=== PATIENT | female | born 1985 | race Caucasian/White ===

== ENCOUNTER 2016-09-10 17:04 | Emergency (ER) | payer OTHER ==
[2016-09-10 17:20] VITALS: BP 135/75; PULSE 86; RESP 18; TEMP 97.4
--- NOTE | 2016-09-10 18:03 | ED ---
Fall HPI - General Chief Complaint: Fall Stated Complaint: Fall-IHS Time Seen by Provider: 09/10/16 17:48 Source: patient, RN notes reviewed, old records reviewed Mode of arrival: ambulatory - History of Present Illness Initial Comments: Patient is a 31-year-old female presenting to the stating that she fell on the ice yesterday at work and hurt her right knee. Patient reports that she was seen at urgent care clinic his stated they were unable to treat her because this is an IHS injury. She went to [facility] today and was given x-rays and was told that she has a knee sprain. Patient was given a prescription of her Motrin. Patient is also placed in a knee immobilizer. Patient has follow-up appointment with Dr. Corral an orthopedic physician. At this time patient was told it [facility] that she was they were unable to fill out IHS paperwork due to the fact that they did not work with workman's comp. Patient was then sent to our facility where she was instructed urine tests. She declines to have any other imaging studies at this time. She is placed in a knee immobilizer. Patient denies any new symptoms or new injuries at from last night. - Related Data Home Medications Medication Instructions Recorded Confirmed Acyclovir 1 tab PO DAILY 04/22/14 07/08/14 Allergies Allergy/AdvReac Type Severity Reaction Status Date / Time No Known Allergies Allergy Verified 07/08/14 20:09 Review of Systems ROS Statement: Those systems with pertinent positive or pertinent negative responses have been documented in the HPI. ROS Other: All systems not noted in ROS Statement are negative. Past Medical History Past Medical History: Asthma History of Any Multi-Drug Resistant Organisms: None Reported Past Surgical History: Section, Tonsillectomy Past Anesthesia/Blood Transfusion Reactions: No Reported Reaction Past Psychological History: ADD/ADHD, Anxiety, Depression, PTSD Smoking Status: Current every day smoker Past Alcohol Use History: None Reported Past Drug Use History: None Reported Additional Drug Use History / Comment(s): Last used crack at 12/24/2013 @ 0300 - Past Family History Father Family Medical History: Cancer Mother Additional Family Medical History / Comment(s): HX of Bipolar General Exam - General Exam Comments Initial Comments: is a 31-year-old female. She does not appear to be in any acute. Limitations: no limitations General appearance: alert, in no apparent distress Head exam: Present: atraumatic, normocephalic, normal inspection Eye exam: Present: normal appearance, PERRL, EOMI. Absent: scleral icterus, conjunctival injection, periorbital swelling ENT exam: Present: normal exam, mucous membranes moist Neck exam: Present: normal inspection. Absent: tenderness, meningismus, lymphadenopathy Respiratory exam: Present: normal lung sounds bilaterally. Absent: respiratory distress, wheezes, rales, rhonchi, stridor Cardiovascular Exam: Present: regular rate, normal rhythm, normal heart sounds. Absent: systolic murmur, diastolic murmur, rubs, gallop, clicks GI/Abdominal exam: Present: soft, normal bowel sounds. Absent: distended, tenderness, guarding, rebound, rigid Extremities exam: Present: normal inspection, full ROM, normal capillary refill. Absent: tenderness, pedal edema, joint swelling, calf tenderness Right Knee exam: Present: normal inspection. Absent: full ROM (Patient has been placed in a knee immobilizer.) Lower Leg exam: Present: normal inspection, full ROM Ankle exam: Present: normal inspection, full ROM Foot/Toe exam: Present: normal inspection, full ROM Neurovascular tendon exam: Present: no vascular compromise Back exam: Present: normal inspection, full ROM Neurological exam: Present: alert, oriented X3, CN II-XII intact Psychiatric exam: Present: normal affect, normal mood Skin exam: Present: warm, dry, intact, normal color. Absent: rash Course Vital Signs 09/10/16 17:16 Temperature 97.4 F L Pulse Rate 86 Respiratory 18 Rate Blood Pressure 135/75 O2 Sat by Pulse 97 Oximetry Medical Decision Making - Medical Decision Making Patient is a 31-year-old female with chief complaint of knee pain after a fall yesterday. She was seen at [facility] earlier today however she has relatively I just paperwork. They did treat her placed in a knee immobilizer as well as to x -rays. Patient has a follow-up appointment with orthopedic physician. Patient was adhered to complete her urine test for Workmen's Comp. Urine sample is obtained. Patient will be discharged at this time she declines any further imaging studies. Patient denies any new injuries or complaints. Patient understands treatment plan and will comply. Return parameters were discussed. Disposition Clinical Impression: Right knee sprain Disposition: HOME SELF-CARE Condition: Good Instructions: Knee Sprain (ED) Additional Instructions: Patient instructed to follow-up with orthopedic Dr. Corral. Take anti- inflammatories and elevate leg as instructed. Return to the [facility] if any alarming signs or symptoms occur. Referrals: None,Stated [Primary Care Provider] - 1-2 days Time of Disposition: 18:03
== END 2016-09-10 18:11 | disposition home or self-care (01) ==
LOC: EC 17:04
DX: S83.91XA Sprain of unspecified site of right knee, initial encounter (principal); F17.200 Nicotine dependence, unspecified, uncomplicated; W00.0XXA Fall on same level due to ice and snow, initial encounter; Y99.0 Civilian activity done for income or pay
CPT/HCPCS: 99283

== ENCOUNTER 2016-10-14 12:40 | Emergency (ER) | payer OTHER ==
[2016-10-14] MEDS ORDERED: CEPHALEXIN 500 MG CAP PO STA (13:34)
--- NOTE | 2016-10-14 13:37 | ED ---
Recheck HPI - General Chief Complaint: Recheck/Abnormal Lab/Rx Stated Complaint: poss incision infection-post op gallbladder Time Seen by Provider: 10/14/16 12:56 Source: patient Mode of arrival: ambulatory Limitations: no limitations - History of Present Illness Initial Comments: This patient is a 31-year-old woman who presents to have a wound recheck. The patient states that nearly 2 weeks ago, she had laparoscopic cholecystectomy performed here by Dr. Golden. She states that over the past couple of days she noticed that one of the incisions has opened a little bit, and she states that there is some pus draining. She describes the fluid as being somewhat yellow on the dressing. The patient denies fever or chills, diaphoresis, dyspnea, palpitations. She is not having any abdominal pain. MD Complaint: wound re-check Onset/Timin -: week(s) Returns Today for: wound recheck Symptoms Since Prior Visit: worsening redness, worsening discharge Associated Symptoms: none - Related Data Home Medications Medication Instructions Recorded Confirmed Ibuprofen [Motrin] 800 mg PO Q8HR PRN 10/14/16 10/14/16 Previous Rx's Medication Instructions Recorded Cephalexin [Keflex] 500 mg PO Q6HR #28 cap 10/14/16 traMADol HCl [Ultram] 50 mg PO Q6H PRN #15 tab 10/14/16 Allergies Allergy/AdvReac Type Severity Reaction Status Date / Time No Known Allergies Allergy Verified 10/14/16 13:37 Review of Systems ROS Statement: Those systems with pertinent positive or pertinent negative responses have been documented in the HPI. ROS Other: All systems not noted in ROS Statement are negative. Constitutional: Denies: fever, chills Respiratory: Denies: cough, dyspnea Cardiovascular: Denies: chest pain, palpitations, syncope Gastrointestinal: Denies: abdominal pain, vomiting, diarrhea Musculoskeletal: Denies: back pain Skin: Reports: as per HPI Past Medical History Past Medical History: Asthma Additional Past Medical History / Comment(s): Gallstones History of Any Multi-Drug Resistant Organisms: None Reported Past Surgical History: Section, Cholecystectomy, Tonsillectomy Additional Past Surgical History / Comment(s): x2 Past Anesthesia/Blood Transfusion Reactions: No Reported Reaction Past Psychological History: ADD/ADHD, Anxiety, Depression, PTSD Additional Psychological History / Comment(s): [facility] She is independent Smoking Status: Current every day smoker Past Alcohol Use History: None Reported Additional Past Alcohol Use History / Comment(s): Pt started smoking in 1996 and is a ppd smoker. Past Drug Use History: None Reported Additional Drug Use History / Comment(s): Pt denied any past or present drug use. - Past Family History Father Family Medical History: Cancer Additional Family Medical History / Comment(s): Bladder cancer. Mother Additional Family Medical History / Comment(s): HX of Bipolar General Exam Limitations: no limitations General appearance: alert, in no apparent distress Head exam: Present: atraumatic, normocephalic Eye exam: Present: normal appearance. Absent: scleral icterus, conjunctival injection ENT exam: Present: normal oropharynx Neck exam: Present: normal inspection, full ROM Respiratory exam: Present: normal lung sounds bilaterally. Absent: respiratory distress, wheezes, rales, rhonchi, stridor Cardiovascular Exam: Present: regular rate, normal rhythm GI/Abdominal exam: Present: soft, other (Patient's 1 Lepper scopic incision has a small amount of dehiscence. There is a little bit of serous drainage. There does not appear to be any purulent drainage. There is a trace of erythema adjacent. No tenderness. No palpable fluid collections.). Absent: distended, tenderness, guarding, rebound, rigid, hernia Extremities exam: Present: normal inspection, normal capillary refill. Absent: pedal edema, calf tenderness Back exam: Absent: CVA tenderness (R), CVA tenderness (L) Skin exam: Present: warm, dry, erythema. Absent: intact, rash Course Vital Signs 10/14/16 10/14/16 12:50 13:55 Temperature 98.8 F 99.3 F Pulse Rate 84 74 Respiratory 18 16 Rate Blood Pressure 123/75 119/57 O2 Sat by Pulse 98 98 Oximetry Medical Decision Making - Medical Decision Making This patient is a 31-year-old woman nearly 2 weeks status post lap jonathon. There is trace of erythema adjacent to one of the incisions. After discussion with surgeon, patient started on antibiotic and will follow clinic. Discussed return parameters and appropriate follow-up. Disposition Clinical Impression: Encounter for wound re-check Disposition: HOME SELF-CARE Condition: Good Instructions: *Surgery [facility] - ([facility]) Laparoscopic Cholecystectomy Prescriptions: Cephalexin [Keflex] 500 mg PO Q6HR #28 cap traMADol HCl [Ultram] 50 mg PO Q6H PRN #15 tab PRN Reason: Pain Referrals: Ahsan Golden MD [STAFF PHYSICIAN] - 1-2 days
[2016-10-14] MEDS ORDERED: IBUPROFEN 400 MG TAB PO STA (13:44)
[2016-10-14 13:57] VITALS: BP 119/57; PULSE 74; RESP 16; TEMP 99.3
== END 2016-10-14 13:55 | disposition home or self-care (01) ==
LOC: EC 12:40
DX: Z09 Encounter for follow-up examination after completed treatment for conditions other than malignant neoplasm (principal); F17.200 Nicotine dependence, unspecified, uncomplicated
CPT/HCPCS: 87070; 87077; 87186; 87205; 99283

== ENCOUNTER 2017-01-13 11:44 | Emergency (ER) | payer OTHER ==
--- NOTE | 2017-01-13 12:46 | ED ---
General Adult HPI - General Chief complaint: Psychiatric Symptoms Stated complaint: PRIVATE ISSUE Time Seen by Provider: 01/13/17 12:24 Source: patient, RN notes reviewed Mode of arrival: ambulatory Limitations: no limitations - History of Present Illness Initial comments: Patient 31-year-old female who presents emergency room today with a chief complaint of increased depression. She states she's not had specific thoughts of hurting herself. She denies any homicidal thoughts or plans. She does admit that she's had increased pressure is currently off her medications. She states that she recently lost her job and prior to that lost custody of her son. Patient denies any physical complaints. Patient denies any recent fever, chills, shortness of breath, chest pain, back pain, abdominal pain, nausea or vomiting, numbness or tingling, dysuria or hematuria, constipation or diarrhea, headaches or visual changes, or any other complaints. - Related Data Home Medications Medication Instructions Recorded Confirmed Albuterol Inhaler [Ventolin Hfa 1 - 2 puff INHALATION Q6HR PRN 01/13/17 01/13/17 Inhaler] Allergies Allergy/AdvReac Type Severity Reaction Status Date / Time No Known Allergies Allergy Verified 01/13/17 12:25 Review of Systems ROS Statement: Those systems with pertinent positive or pertinent negative responses have been documented in the HPI. ROS Other: All systems not noted in ROS Statement are negative. Past Medical History Past Medical History: Asthma Additional Past Medical History / Comment(s): Gallstones History of Any Multi-Drug Resistant Organisms: None Reported Date of last positivie culture/infection: 10/14/16 MDRO Source:: Abdomen Past Surgical History: Section, Cholecystectomy, Tonsillectomy Additional Past Surgical History / Comment(s): x2 Past Anesthesia/Blood Transfusion Reactions: No Reported Reaction Past Psychological History: ADD/ADHD, Anxiety, Depression, PTSD Additional Psychological History / Comment(s): Pt resides with a roomate. She is independent Smoking Status: Current every day smoker Past Alcohol Use History: None Reported Additional Past Alcohol Use History / Comment(s): Pt started smoking in 1996 and is a ppd smoker. Past Drug Use History: None Reported Additional Drug Use History / Comment(s): Pt denied any past or present drug use. - Past Family History Father Family Medical History: Cancer Additional Family Medical History / Comment(s): Bladder cancer. Mother Additional Family Medical History / Comment(s): HX of Bipolar General Exam - General Exam Comments Initial Comments: General: The patient is awake and alert, in no distress, and does not appear acutely ill. Eye: Pupils are equal, round and reactive to light, extra-ocular movements are intact. No nystagmus. There is normal conjunctiva bilaterally. No signs of icterus. Ears, nose, mouth and throat: There are moist mucous membranes and no oral lesions. Neck: The neck is supple, there is no tenderness or JVD. Cardiovascular: There is a regular rate and rhythm. No murmur, rub or gallop is appreciated. Respiratory: Lungs are clear to auscultation, respirations are non-labored, breath sounds are equal. No wheezes, stridor, rales, or rhonchi. Musculoskeletal: Normal ROM, no tenderness. Strength 5/5. Sensation intact. Pulses equal bilaterally 2+. Neurological: A&O x 3. CN II-XII intact, There are no obvious motor or sensory deficits. Coordination appears grossly intact. Speech is normal. Skin: Skin is warm and dry and no rashes or lesions are noted. Psychiatric: Cooperative, appropriate mood & affect, normal judgment. Limitations: no limitations Course Vital Signs 01/13/17 01/13/17 11:53 14:35 Temperature 97.6 F 98.2 F Pulse Rate 101 H 69 Respiratory 18 16 Rate Blood Pressure 121/87 110/62 O2 Sat by Pulse 99 Oximetry Medical Decision Making - Medical Decision Making Patient has been seen here in the emergency room by mental health. At this time they are helping patient arrange follow-up. She states she feels comfortable being discharged home. She is willing to sign a contract for safety. States she will return if any symptoms increase or worsen or for any other concerns. Patient will be discharged home advised to follow-up with mental health as discussed here Disposition Clinical Impression: Depression Disposition: HOME SELF-CARE Condition: Good Instructions: Depression (ED) Additional Instructions: Please follow-up with mental health as discussed here the emergency room. Please try to emergency room if any symptoms increase or worsen or for any other concerns. Referrals: None,Stated [Primary Care Provider] - 1-2 days Time of Disposition: 15:24
--- NOTE | 2017-01-13 15:49 | ED ---
Medical Decision Making - Medical Decision Making Psych services seen patient in the emergency room. She is willing to sign a safety contract. They were trying to set up an appointment for patient. Unable to make appointment for 9 days. At this time psych nurse did discuss with the psychiatrist Dr. Almonte who recommends starting Prozac 20 mg daily for the first 9 days until she is able follow-up. Disposition Clinical Impression: Depression Disposition: HOME SELF-CARE Condition: Good Instructions: Depression (ED) Additional Instructions: Please follow-up with mental health as discussed here the emergency room. Please try to emergency room if any symptoms increase or worsen or for any other concerns. Prescriptions: FLUoxetine HCL [PROzac] 20 mg PO DAILY #9 cap Referrals: None,Stated [Primary Care Provider] - 1-2 days
[2017-01-13 15:53] VITALS: BP 116/58; PULSE 78; RESP 15; TEMP 98.8
== END 2017-01-13 15:54 | disposition home or self-care (01) ==
LOC: EC 11:44
DX: F32.9 Major depressive disorder, single episode, unspecified (principal); F17.200 Nicotine dependence, unspecified, uncomplicated
CPT/HCPCS: 82075; 99284

== ENCOUNTER 2017-02-17 17:57 | Emergency (ER) | payer OTHER ==
[2017-02-17] MEDS ORDERED: MORPHINE SULFATE 10 MG/ML SYRINGE IM STA (19:02)
--- NOTE | 2017-02-17 19:06 | ED ---
Abdominal Pain HPI - General Chief Complaint: Abdominal Pain Stated Complaint: pelvic pain Time Seen by Provider: 02/17/17 18:42 Source: patient, RN notes reviewed Mode of arrival: ambulatory Limitations: no limitations - History of Present Illness Initial Comments: Patient is a 30-year-old female presents to the emergency room for evaluation of pelvic pain. Patient states she had an annual Pap smear done by her primary care provider last week. Patient states after the bimanual exam she having increasing pain in her right lower quadrant and left lower quadrant. Patient states that she does have an IUD in place. Patient states she's had it for about 2 years. Patient states she's afraid that her IUD is not in the right place. Patient denies pain or burning during urination, trouble urinating or blood in urine. Patient denies any abnormal vaginal discharge. Patient has history of STDs. Patient denies constipation or diarrhea. Patient denies fevers or chills. - Related Data Home Medications Medication Instructions Recorded Confirmed Albuterol Inhaler [Ventolin Hfa 1 - 2 puff INHALATION RT-Q6H PRN 01/13/17 Inhaler] Loratadine [Claritin] 10 mg PO DAILY 02/17/17 02/17/17 valACYclovir [Valtrex] 500 mg PO DAILY 02/17/17 02/17/17 Previous Rx's Medication Instructions Recorded FLUoxetine HCL [PROzac] 20 mg PO DAILY #9 cap 01/13/17 HYDROcodone/APAP 5-325MG [[place]field 1 tab PO Q6HR PRN #12 tab 02/17/17 5-325] Ibuprofen [Motrin] 600 mg PO Q6HR PRN #20 tab 02/17/17 Allergies Allergy/AdvReac Type Severity Reaction Status Date / Time No Known Allergies Allergy Verified 02/17/17 18:04 Review of Systems ROS Statement: Those systems with pertinent positive or pertinent negative responses have been documented in the HPI. ROS Other: All systems not noted in ROS Statement are negative. Past Medical History Past Medical History: Asthma Additional Past Medical History / Comment(s): Gallstones History of Any Multi-Drug Resistant Organisms: None Reported Date of last positivie culture/infection: 10/14/16 MDRO Source:: Abdomen Past Surgical History: Section, Cholecystectomy, Tonsillectomy Additional Past Surgical History / Comment(s): x2 Past Anesthesia/Blood Transfusion Reactions: No Reported Reaction Past Psychological History: ADD/ADHD, Anxiety, Depression, Panic Disorder, PTSD Smoking Status: Current every day smoker Past Alcohol Use History: None Reported Past Drug Use History: None Reported - Past Family History Father Family Medical History: Cancer Additional Family Medical History / Comment(s): Bladder cancer. Mother Additional Family Medical History / Comment(s): HX of Bipolar General Exam - General Exam Comments Initial Comments: laying in exam room, no acute distress. Limitations: no limitations General appearance: alert, in no apparent distress Head exam: Present: atraumatic, normocephalic, normal inspection Eye exam: Present: normal appearance ENT exam: Present: normal exam Neck exam: Present: normal inspection Respiratory exam: Present: normal lung sounds bilaterally. Absent: respiratory distress Cardiovascular Exam: Present: regular rate, normal rhythm, normal heart sounds GI/Abdominal exam: Present: soft, normal bowel sounds. Absent: distended, tenderness, guarding, rebound, rigid External exam: Present: normal external exam Speculum exam: Present: vaginal discharge By manual exam: Present: adnexal tenderness (right and left) Extremities exam: Present: normal inspection Back exam: Present: normal inspection Neurological exam: Present: alert, oriented X3, CN II-XII intact, normal gait Psychiatric exam: Present: normal affect, normal mood Skin exam: Present: warm, dry, intact, normal color. Absent: rash Course Vital Signs 02/17/17 18:01 Temperature 97.8 F Pulse Rate 74 Respiratory 18 Rate Blood Pressure 128/80 O2 Sat by Pulse 98 Oximetry Medical Decision Making - Medical Decision Making Patient is a 31-year-old female presents to the emergency room for evaluation of lower pelvic pain. pelvic exam shows no significant findings. Urinalysis shows no significant findings. Ultrasound showed no acute or abnormal findings. IUD is in good place. Results discussed with patient. Advised patient to follow-up with her primary care provider or [facility] symptoms not subsiding in 7-10 days. Advised patient to continue refraining from sexual intercourse. Patient states she understands everything that was discussed with her. Return parameters discussed. Case discussed Dr. Jovel. - Lab Data Lab Results 02/17/17 02/17/17 Range/Units 19:00 19:00 Urine Color Light Yellow Urine Appearance Cloudy H (Clear) Urine pH 7.0 (5.0-8.0) Ur Specific [place] 1.008 (1.001-1.035) Urine Protein Negative (Negative) Urine Glucose (UA) Negative (Negative) Urine Ketones Negative (Negative) Urine Blood Negative (Negative) Urine Nitrite Negative (Negative) Urine Bilirubin Negative (Negative) Urine Urobilinogen <2.0 (<2.0) mg/dL Ur Leukocyte Esterase Negative (Negative) Ur Squamous Epith Cells 6 H (0-4) /hpf Amorphous Sediment Moderate H (None) /hpf Urine Mucus Rare H (None) /hpf Trichomonas Ag (Rapid) Negative (Negative) - Radiology Data Radiology results: report reviewed, image reviewed Disposition Clinical Impression: Pelvic pain Disposition: HOME SELF-CARE Condition: Good Instructions: Pelvic Pain in Women (ED) Additional Instructions: Take pain medications as needed. Refrain from sexual intercourse for the next 7 -10 days. Please follow up with primary care provider or [facility] in 1-2 days. If any new symptom arises or symptoms worsen, return to ER as soon as possible. Prescriptions: HYDROcodone/APAP 5-325MG [Brownfield 5-325] 1 tab PO Q6HR PRN #12 tab PRN Reason: Nausea Ibuprofen [Motrin] 600 mg PO Q6HR PRN #20 tab PRN Reason: Pain Referrals: Veronica Montenegro MD [Primary Care Provider] - 1-2 days Shamika Dowell DO [Doctor of Osteopathic Medicine] - 1-2 days Time of Disposition: 19:55
[2017-02-17 19:18] LABS: Amorphous Sediment,Urine Moderate /hpf; Appearance,Urine Cloudy (Clear); Bilirubin,Urine Negative (Negative); Glucose,Urine (UA) Negative (Negative); Ketones,Urine Negative (Negative); Leukocyte Esterase,Urine Negative (Negative); Mucus,Urine Rare /hpf; Nitrite,Urine Negative (Negative); Particle Count 13209; Protein,Urine Negative (Negative); Specific Gravity,Urine 1.008 (1.001-1.035); Squamous Epithelial Cell,Urine 6 /hpf (0-4); UA Billing (MACRO vs. MICRO) MICRO; Urobilinogen,Urine <2.0 mg/dL (<2.0)
--- NOTE | 2017-02-17 19:51 | US ---
EXAMINATION TYPE: US transvaginal DATE OF EXAM: 02/17/2017 COMPARISON: NONE CLINICAL HISTORY: Pain, more on the left . TECHNIQUE: Transvaginal (TV) Date of LMP: About 2 years ago, patient has IUD EXAM MEASUREMENTS: Uterus: 7.3 x 3.9 x 5.1 cm Endometrial Stripe: 0.5 cm Right Ovary: 3.2 x 2.3 x 2.3 cm Left Ovary: 3.1 x 2.1 x 2.1 cm 1. Uterus: Anteverted wnl 2. Endometrium: wnl, IUD visualized in mid 3. Right Ovary: wnl 4. Left Ovary: wnl Spectral, color and waveform doppler imaging shows good arterial and venous flow within the ovaries ; there is no evidence for ovarian torsion. 5. Bilateral Adnexa: wnl 6. Posterior cul-de-sac: wnl IMPRESSION: IUD appears in good position. No adnexal mass or free fluid. No endometrial thickening se en. There is normal arterial waveform in the ovarian arteries on the color Doppler images. No sign of torsion.
[2017-02-17 20:09] VITALS: BP 102/58; PULSE 63; RESP 16; TEMP 98.7
== END 2017-02-17 20:09 | disposition home or self-care (01) ==
LOC: EC 17:57
DX: R10.2 Pelvic and perineal pain (principal); F17.200 Nicotine dependence, unspecified, uncomplicated; Z90.49 Acquired absence of other specified parts of digestive tract; Z79.899 Other long term (current) drug therapy
CPT/HCPCS: 99284; 96372; 87591; 87491; 81001; 81025; 87808; 87086; 87077; 87186; 93975; 76830; J2270

== ENCOUNTER 2017-02-24 14:06 | Inpatient (IN) | payer MEDICAID, OTHER ==
--- NOTE | 2017-02-24 14:45 | ED ---
Psych HPI - General Chief Complaint: Psychiatric Symptoms Stated Complaint: Mental Health Time Seen by Provider: 02/24/17 14:22 Source: patient, RN notes reviewed Mode of arrival: ambulatory Limitations: no limitations - History of Present Illness Initial Comments: 31-year-old female presents emergency Department with chief complaint of psychiatric evaluation. Patient states that she is very depressed, suicidal. She states that she checked drink herself to sleep to the point where she would not wake up last night. Patient states that she is on Prozac 20 mg states it is not helping. Patient states she has been seen here in the past and also by primary care physician. She does have a counselor. Patient denies any physical complaints denies any drug abuse. - Related Data Home Medications Medication Instructions Recorded Confirmed Loratadine [Claritin] 10 mg PO DAILY 02/17/17 02/24/17 valACYclovir [Valtrex] 500 mg PO DAILY 02/17/17 02/24/17 Sulfamethox-Tmp 800-160Mg [Bactrim 1 tab PO Q12HR 02/24/17 02/24/17 DS 800-160 mg] Previous Rx's Medication Instructions Recorded FLUoxetine HCL [PROzac] 20 mg PO DAILY #9 cap 01/13/17 Allergies Allergy/AdvReac Type Severity Reaction Status Date / Time No Known Allergies Allergy Verified 02/24/17 14:27 Review of Systems ROS Statement: Those systems with pertinent positive or pertinent negative responses have been documented in the HPI. ROS Other: All systems not noted in ROS Statement are negative. Past Medical History Past Medical History: Asthma Additional Past Medical History / Comment(s): Gallstones History of Any Multi-Drug Resistant Organisms: None Reported Date of last positivie culture/infection: 10/14/16 MDRO Source:: Abdomen Past Surgical History: Section, Cholecystectomy, Tonsillectomy Additional Past Surgical History / Comment(s): x2 Past Anesthesia/Blood Transfusion Reactions: No Reported Reaction Past Psychological History: ADD/ADHD, Anxiety, Depression, Panic Disorder, PTSD Smoking Status: Current every day smoker Past Alcohol Use History: None Reported Past Drug Use History: None Reported - Past Family History Father Family Medical History: Cancer Additional Family Medical History / Comment(s): Bladder cancer. Mother Additional Family Medical History / Comment(s): HX of Bipolar General Exam Limitations: no limitations General appearance: alert, in no apparent distress Head exam: Present: atraumatic, normocephalic, normal inspection Eye exam: Present: normal appearance, PERRL, EOMI. Absent: scleral icterus, conjunctival injection, periorbital swelling ENT exam: Present: normal exam, mucous membranes moist Neck exam: Present: normal inspection, full ROM. Absent: tenderness, meningismus, lymphadenopathy Respiratory exam: Present: normal lung sounds bilaterally. Absent: respiratory distress, wheezes, rales, rhonchi, stridor Cardiovascular Exam: Present: regular rate, normal rhythm, normal heart sounds. Absent: systolic murmur, diastolic murmur, rubs, gallop, clicks GI/Abdominal exam: Present: soft, normal bowel sounds. Absent: distended, tenderness, guarding, rebound, rigid Neurological exam: Present: alert, oriented X3, CN II-XII intact Skin exam: Present: warm, dry, intact, normal color. Absent: rash Course Vital Signs 02/24/17 02/24/17 14:16 17:19 Temperature 98.4 F 99.5 F Pulse Rate 71 89 Respiratory 20 18 Rate Blood Pressure 123/80 112/67 O2 Sat by Pulse 96 99 Oximetry Medical Decision Making - Lab Data Lab Results 02/24/17 Range/Units 14:32 Urine Opiates Screen Not Detected (NotDetected) Ur Oxycodone Screen Not Detected (NotDetected) Urine Methadone Screen Not Detected (NotDetected) Ur Propoxyphene Screen Not Detected (NotDetected) Ur Barbiturates Screen Not Detected (NotDetected) U Tricyclic Antidepress Not Detected (NotDetected) Ur Phencyclidine Scrn Not Detected (NotDetected) Ur Amphetamines Screen Not Detected (NotDetected) U Methamphetamines Scrn Not Detected (NotDetected) U Benzodiazepines Scrn Not Detected (NotDetected) Urine Cocaine Screen Detected H (NotDetected) U Marijuana (THC) Screen Not Detected (NotDetected) Disposition Clinical Impression: Suicidal ideation, Depression Disposition: ADMITTED IP TO THIS [facility] Condition: Stable
[2017-02-24] MEDS ORDERED: MAG HYDROX/AL HYDROX/SIMETH 30 ML CUP PO PRN (19:21)
[2017-02-24] MEDS ORDERED: ACETAMINOPHEN TAB 325 MG TAB PO PRN (19:21)
[2017-02-24] MEDS ORDERED: MAGNESIUM HYDROXIDE 2,400 MG/10 ML CUP PO PRN (19:21)
[2017-02-24 19:34] LABS: Appearance,Urine Clear (Clear); Bilirubin,Urine Negative (Negative); Glucose,Urine (UA) Negative (Negative); Ketones,Urine Negative (Negative); Leukocyte Esterase,Urine Negative (Negative); Nitrite,Urine Negative (Negative); Protein,Urine Trace (Negative); Specific Gravity,Urine 1.024 (1.001-1.035); UA Billing (MACRO vs. MICRO) CHEM
[2017-02-24] MEDS ORDERED: NICOTINE 14MG/24HR PATCH TRANSDERM ONE (19:45)
[2017-02-24] MEDS: SULFAMETHOX-TMP 800-160MG 1 EACH TAB PO SCH (20:04)
[2017-02-25] MEDS: SULFAMETHOX-TMP 800-160MG 1 EACH TAB PO SCH ×2 (08:27→20:38)
[2017-02-25] MEDS: LORATADINE 10 MG TAB PO SCH (08:27)
[2017-02-25 08:31] LABS: Basophils % (A) 0 %; CH 31.4; CHCM 33.7; Eosinophils # (A) 0.1 k/uL (0-0.7); Eosinophils % (A) 4 %; HCT 43.6 % (34.0-46.0); HDW 2.62; HGB 14.9 gm/dL (11.4-16.0); Luc % (Auto) 3; Lymphocytes # (A) 1.7 k/uL (1.0-4.8); Lymphocytes % (A) 43 %; MCHC 34.3 g/dL (31.0-37.0); MCV 93.5 fL (80.0-100.0); Mean Platelet Volume 7.7; Monocytes # (A) 0.2 k/uL (0-1.0); Monocytes % (A) 5 %; Neutrophils # (A) 1.8 k/uL (1.3-7.7); Neutrophils % (A) 45 %; RBC 4.67 m/uL (3.80-5.40); RDW 13.7 % (11.5-15.5); WBC (Perox) 4.05
[2017-02-25 08:45] LABS: ALT 38 U/L (9-52); AST 24 U/L (14-36); Alkaline Phosphatase 47 U/L (38-126); Anion Gap 9 mmol/L; Blood Urea Nitrogen 9 mg/dL (7-17); Calcium 9.1 mg/dL (8.4-10.2); Carbon Dioxide 23 mmol/L (22-30); Chloride 107 mmol/L (98-107); Glucose 89 mg/dL (74-99); Non-African American GFR(MDRD) >60 (>60 ml/min/1.73 sqM); Potassium 4.3 mmol/L (3.5-5.1); Sodium 139 mmol/L (137-145); Total Bilirubin 0.8 mg/dL (0.2-1.3); Total Protein 6.5 g/dL (6.3-8.2)
[2017-02-25] MEDS ORDERED: NICOTINE 14MG/24HR PATCH TRANSDERM SCH (09:00)
[2017-02-25] MEDS ORDERED: FLUoxetine HCL 20 MG CAP PO SCH (09:00)
[2017-02-25] MEDS ORDERED: FLUoxetine HCL 20 MG CAP PO ONE (12:15)
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
[2017-02-25] MEDS: NICOTINE POLACRILEX 2 MG GUM BUCCAL PRN ×2 (13:11→20:39)
[2017-02-25] MEDS: OLANZapine 2.5 MG TAB PO SCH ×3 (13:11→20:38)
[2017-02-25] MEDS ORDERED: ALBUTEROL NEBULIZED 2.5 MG/3 ML INHALATION PRN (13:56)
[2017-02-25] MEDS: ALBUTEROL INHALER 60 PUFF/8 GM INHALER INHALATION PRN (15:06)
[2017-02-25] MEDS: valACYclovir 500 MG TAB PO SCH (15:09)
[2017-02-26] MEDS: LORATADINE 10 MG TAB PO SCH (08:26)
[2017-02-26] MEDS: valACYclovir 500 MG TAB PO SCH (08:26)
[2017-02-26] MEDS: OLANZapine 2.5 MG TAB PO SCH (08:27)
[2017-02-26] MEDS: NICOTINE POLACRILEX 2 MG GUM BUCCAL PRN ×3 (08:27→21:04)
[2017-02-26] MEDS: SULFAMETHOX-TMP 800-160MG 1 EACH TAB PO SCH ×2 (08:27→20:32)
[2017-02-26] MEDS: FLUoxetine HCL 20 MG CAP PO SCH (08:27)
[2017-02-26 11:19] VITALS: BMI 38.7
--- NOTE | 2017-02-26 11:36 | P.PN ---
Progress Note - Text Interval history: The patient is found in her room she follows me to an interview room. The psychiatric evaluation was reviewed. She was seen yesterday by the [facility] psychiatrist and was restarted on Prozac and started on Zyprexa 2 mg 3 times a day. The patient states since she's been feeling very tired and believes it is the Zyprexa as she has been on that before with the same adverse effect. She endorses no history of hypomanic or manic episodes. She does state that she has had significant depression and the Prozac usually provides benefit. This is confounded by use of substances her urine drug screen was positive for cocaine. She is concerned about maintaining visits with her son which is this Friday. She was admitted with acute suicidal ideation she reports she feels safe here in the hospital. Mental status exam: The patient is an overweight female appearing her stated age. She wears eyeglasses. She is dressed in her own clothing. Speech is fluent spontaneous nonpressured. She reports no acute suicidal or homicidal ideation intent or plan today she does not appear hypomanic or manic. She is pleasant cooperative and appropriately participate in the session. She is endorsing no auditory or visual hallucinations no specific delusions. She demonstrates no verbal or physical aggressiveness. She is oriented to person place and date. Affect is appropriately expressive. Time: The patient will continue on the Prozac 40 mg daily I will discontinue the Zyprexa as it appears unnecessary and is causing a side effect of excessive sedation. She is encouraged to participate in groups. Vital signs reviewed. We will monitor her for safety. It is likely she will not require a long length of stay and may be appropriate for discharge as soon as Friday.
--- NOTE | 2017-02-26 16:51 | CONS ---
DATE OF CONSULTATION: 02/25/2017 REASON FOR CONSULTATION: Advice regarding asthma and other medical issues, requested by Psychiatry. HISTORY OF PRESENT ILLNESS: This 31-year-old woman with a past medical history of multiple medical problems, including asthma, gallstones, history of cholecystectomy, history of ADD/ADHD, history of anxiety, depression, panic disorder, PTSD, was admitted for psychiatric evaluation. The patient also has an extensive history of substance abuse. The patient has recently been using cocaine and ETOH, according to her. There is no history of any fever, rigor or chills. No history of headache, loss of consciousness, seizures. For asthma, the patient takes albuterol inhalers on a p.r.n. basis and updrafts on a p.r.n. basis if the inhalers are not working. PAST MEDICAL HISTORY: 1. History of ADD/ADHD. 2. Anxiety. 3. Depression. 4. Panic disorder. 5. PTSD. 6. Asthma. 7. Gallstones. Medications prior to admission include: 1. Valtrex 500 mg p.o. daily. 2. Bactrim DS one p.o. b.i.d. 3. Claritin 10 mg daily. 4. Prozac 20 mg p.o. daily. ALLERGIES: NONE. FAMILY HISTORY: History of bladder cancer in the family. SOCIAL HISTORY: History of alcohol. History of smoking on a daily basis. REVIEW OF SYSTEMS: ENT: No diminished hearing. No diminished vision. CARDIOVASCULAR SYSTEM: No angina, palpitations. RESPIRATORY SYSTEM: No cough, hemoptysis. GI: No nausea, vomiting. : No dysuria, retention. NERVOUS SYSTEM: No numbness, weakness. ALLERGY/IMMUNOLOGY: Asthma history present. MUSCULOSKELETAL: As mentioned earlier. HEMATOLOGY/ONCOLOGY: No history of anemia. ENDOCRINE: No history of diabetes or hypothyroidism. CONSTITUTIONAL: As mentioned earlier. DERMATOLOGIC: Negative. RHEUMATOLOGIC: Negative. PSYCHIATRY: As mentioned earlier. PHYSICAL EXAMINATION: Patient is alert and oriented x3. Pulse is 61, blood pressure 102/55, respirations 16, temperature 98.3, pulse ox 97% on room air. HEENT: Conjunctivae normal. Oral mucosa moist. NECK: No jugular venous congestion. No carotid bruit. No lymph node enlargement. CARDIAC: S1, S2 muffled. No S3. No S4. RESPIRATORY: Breath sounds diminished at the bases. No rhonchi. No crackles. ABDOMEN: Soft. Non-tender. No mass palpable. LEGS: No edema. No swelling. NERVOUS SYSTEM: Higher functions as mentioned earlier. Moves all 4 limbs. No focal motor or sensory deficit. LYMPHATICS: No lymph node palpable in neck, axillae or groin. SKIN: No ulcer, rash or bleeding. LABS: WBC 4, hemoglobin 14.9. Cocaine is positive. ASSESSMENT: 1. History of bronchial asthma, chronic, intermittent. 2. History of positive cocaine and polysubstance abuse. 3. History of attention deficit disorder, attention deficit hyperactivity disorder. 4. History of anxiety, depression not otherwise specified. 5. History of post-traumatic stress disorder. 6. History of cholecystectomy and gallstones. 7. History of section. RECOMMENDATIONS AND DISCUSSION: In this 31-year-old woman who presented with multiple complex medical issues, at this time we will monitor the patient closely. I would recommend albuterol on a p.r.n. basis. If the patient is not feeling better, updrafts may be used. Otherwise, resume the home medications. Substance abuse counseling. Habitrol. DVT prophylaxis. Resume the home medications. Will follow the patient closely with you. Patient may be asked to follow up with Dr. Veronica Montenegro as an outpatient. Thank you for letting us participate in the care of this patient. ANNE-MARIE
[2017-02-27 06:39] VITALS: TEMP 98.1
[2017-02-27] MEDS: LORATADINE 10 MG TAB PO SCH (08:31)
[2017-02-27] MEDS: SULFAMETHOX-TMP 800-160MG 1 EACH TAB PO SCH ×2 (08:32→20:56)
[2017-02-27] MEDS: FLUoxetine HCL 20 MG CAP PO SCH (08:32)
[2017-02-27] MEDS: valACYclovir 500 MG TAB PO SCH (08:32)
[2017-02-27] MEDS: NICOTINE POLACRILEX 2 MG GUM BUCCAL PRN ×4 (08:34→20:56)
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
[2017-02-27] MEDS: ALBUTEROL INHALER 60 PUFF/8 GM INHALER INHALATION PRN ×2 (08:37→20:32)
[2017-02-28 06:34] VITALS: BP 106/58; PULSE 64; RESP 16
[2017-02-28] MEDS: SULFAMETHOX-TMP 800-160MG 1 EACH TAB PO SCH (08:25)
[2017-02-28] MEDS: valACYclovir 500 MG TAB PO SCH (08:25)
[2017-02-28] MEDS: LORATADINE 10 MG TAB PO SCH (08:25)
[2017-02-28] MEDS: FLUoxetine HCL 20 MG CAP PO SCH (08:26)
[2017-02-28] MEDS: NICOTINE POLACRILEX 2 MG GUM BUCCAL PRN (08:26)
--- NOTE | 2017-02-28 08:49 | P.DS ---
Providers Date of admission: 02/24/17 18:46 Expected date of discharge: 02/28/17 Attending physician: Mundo Huerta Consults: 02/24/17 19:21 Consult Physician Routine Consulting Provider: Naveed Vargas Consult Reason/Comments: follow up h & P Do you want consulting provider notified?: Yes Primary care physician: Veronica Montenegro - Discharge Diagnosis(es) (1) Major depressive disorder, recurrent Current Visit: Yes Status: Acute Priority: High (2) Cocaine use disorder, mild, abuse Current Visit: Yes Status: Acute Priority: High (3) Alcohol use disorder Current Visit: Yes Status: Acute Priority: High Hospital Course: Brief summary of admission note: This patient is a 31-year-old female who was admitted to the mental health unit through the emergency room. She presented feeling depressed and reported suicidal ideation area and this occurred in the context of relapsing with use of cocaine and alcohol. She was initially evaluated by Dr. Tijerina. For full details please refer to his psychiatric evaluation dated 02/25/2017. Summary of hospital course: The patient was admitted to the mental health unit. Efforts were made to diver her and keep her an outpatient care however she felt that her suicidal thoughts are too strong and she required admission. She was admitted. She was evaluated initially by Dr. Tijerina. She was restarted on Prozac which was titrated to 40 mg and was placed on Zyprexa 2.5 mg 3 times daily. I assumed care of the patient the following day. She reported she felt tired with the Zyprexa and did not want to continue that medication. There is no evidence of hypomanic or manic symptoms requiring use of a mood stabilizer and I discontinued the Zyprexa. We continue the Prozac. The initial day she did not attend groups but this did improve during the course of the hospitalization. She has noted a resolution of her acute suicidal ideation. At no time did she voice any homicidal thoughts. 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 She was continued on Bactrim that was started as an outpatient for a presumed urinary tract infection. She demonstrated no agitated behavior. We discussed the possibility of having her participate in inpatient chemical dependency treatment but she was not interested. Mental status exam: The patient is an overweight female appearing her stated age. Eye contact is appropriate she wears eyeglasses. Speech is fluent spontaneous nonpressured area and she reports mood is improved she is reporting no hopelessness thinking no suicidal or homicidal ideation intent or plan. At no time did she express any interest in harming her son. She reports no auditory or visual hallucinations no specific delusions. There is no evidence of psychosis. She reports no racing thoughts there is no evidence of pressured speech. There is no evidence of hypomania or temi at this time. Insight and judgment improved. Cognitively she is alert and oriented to person place and date. She demonstrates no verbal or physical aggressiveness. Affect is appropriately expressive she was not tearful she demonstrates no irritability. Impressions 1. Major depressive disorder recurrent, cocaine use disorder, alcohol use disorder, rule out post traumatic stress disorder 2. History of hypoglycemia, documented history of scoliosis recent urinary tract infection history of head injury 3. Economic strain, legal involvement regarding parenting rights Plan: The patient will be discharged from the mental health unit today. She will return to her prior residence with her roommate. She will continue on Prozac 40 mg daily. Social work will confirm her outpatient mental health follow-up. The patient does not wish to participate in inpatient chemical dependency treatment but is willing to address these issues in an outpatient venue. There is no imminent safety risk she is appropriate for continued care as an outpatient. She is instructed to return to the hospital with any acute safety concerns. She is instructed to follow up with primary care physician as needed. She will continue the course of Bactrim as prescribed prior to this admission. Patient Condition at Discharge: Stable Plan - Discharge Summary New Discharge Prescriptions: New Albuterol Inhaler [Ventolin Hfa Inhaler] 2 puff INHALATION RT-TID PRN puff PRN Reason: Shortness Of Breath Or Wheezing FLUoxetine HCL [PROzac] 40 mg PO DAILY #30 cap Nicotine Polacrilex [Nicorette] 2 mg BUCCAL Q2HR PRN #30 pieceofgum PRN Reason: Nicotine Cravings Continue valACYclovir [Valtrex] 500 mg PO DAILY Loratadine [Claritin] 10 mg PO DAILY Sulfamethox-Tmp 800-160Mg [Bactrim DS 800-160 mg] 1 tab PO Q12HR Discontinued FLUoxetine HCL [PROzac] 20 mg PO DAILY #9 cap Discharge Medication List Loratadine [Claritin] 10 mg PO DAILY 02/17/17 [History] valACYclovir [Valtrex] 500 mg PO DAILY 02/17/17 [History] Sulfamethox-Tmp 800-160Mg [Bactrim DS 800-160 mg] 1 tab PO Q12HR 02/24/17 [ History] Albuterol Inhaler [Ventolin Hfa Inhaler] 2 puff INHALATION RT-TID PRN puff 03/10 [Rx] FLUoxetine HCL [PROzac] 40 mg PO DAILY #30 cap 02/28/17 [Rx] Nicotine Polacrilex [Nicorette] 2 mg BUCCAL Q2HR PRN #30 pieceofgum 02/28/17 [Rx ] Follow up Appointment(s)/Referral(s): Veronica Montenegro MD [Primary Care Provider] - 1-2 days
== END 2017-02-28 09:38 | disposition home or self-care (01) | DRG 885 ==
LOC: EC 14:06 → 3MHU 18:46
PROVIDERS: ADMIT Psychiatry & Neurology Psychiatry; ATTEND Psychiatry & Neurology Psychiatry
DX: F33.2 Major depressive disorder, recurrent severe without psychotic features (principal); R45.851 Suicidal ideations; M41.9 Scoliosis, unspecified; F14.10 Cocaine abuse, uncomplicated; E16.2 Hypoglycemia, unspecified; E66.3 Overweight; F17.200 Nicotine dependence, unspecified, uncomplicated; F41.0 Panic disorder [episodic paroxysmal anxiety]; F43.10 Post-traumatic stress disorder, unspecified; F90.9 Attention-deficit hyperactivity disorder, unspecified type; J45.909 Unspecified asthma, uncomplicated; F41.9 Anxiety disorder, unspecified; G47.9 Sleep disorder, unspecified; F10.10 Alcohol abuse, uncomplicated; Z79.899 Other long term (current) drug therapy; Z62.810 Personal history of physical and sexual abuse in childhood; Z68.38 Body mass index [BMI] 38.0-38.9, adult; Z65.3 Problems related to other legal circumstances
CPT/HCPCS: 80053; 80306; 81003; 81025; 82075; 84443; 85025; 94640; 99285

== ENCOUNTER 2017-03-02 16:26 | Emergency (ER) | payer OTHER ==
[2017-03-02 16:47] VITALS: BP 113/67; PULSE 64; RESP 18; TEMP 98.5
[2017-03-02] MEDS ORDERED: Acetaminophen-Codeine 300-30mg TAB PO STA (17:19)
--- NOTE | 2017-03-02 17:19 | ED ---
Lower Extremity Injury HPI - General Chief Complaint: Extremity Injury, Lower Stated Complaint: Foot Pain Time Seen by Provider: 03/02/17 17:02 Source: patient, RN notes reviewed Mode of arrival: ambulatory Limitations: no limitations - History of Present Illness Initial Comments: 31 year old female presents emergency Department chief complaint rash her feet. Patient states started last few days. Patient states her red bumps primarily along the edges of her feet. She states that it's worse in her right heel and left heel. Patient states that she was in the hospital for mental health for 5 days. Patient states that she did worsening sandals admitted constipation issues. Patient denies any open lesions or sores. Denies fever, chills. States her feet are very sensitive are causing her To walk on her toes. Patient states her feet are not itchy she has tried some [id number] creams with no relief. - Related Data Home Medications Medication Instructions Recorded Confirmed Loratadine [Claritin] 10 mg PO DAILY 02/17/17 02/24/17 valACYclovir [Valtrex] 500 mg PO DAILY 02/17/17 02/24/17 Previous Rx's Medication Instructions Recorded Albuterol Inhaler [Ventolin Hfa 2 puff INHALATION RT-TID PRN puff 02/28/17 Inhaler] FLUoxetine HCL [PROzac] 40 mg PO DAILY #30 cap 02/28/17 Nicotine Polacrilex [Nicorette] 2 mg BUCCAL Q2HR PRN #30 pieceofgum 02/28/17 Acetaminophen-Codeine 300-30mg 1 tab PO Q4H PRN #10 tablet 03/02/17 [Tylenol #3] Clotrimazole/Betamethasone Dip 1 applic TOPICAL BID #45 gm 03/02/17 [Lotrisone Cream] Sulfamethox-Tmp 800-160Mg [Bactrim 1 each PO Q12HR #20 tab 03/02/17 Ds] Allergies Allergy/AdvReac Type Severity Reaction Status Date / Time No Known Allergies Allergy Verified 03/02/17 16:47 Review of Systems ROS Statement: Those systems with pertinent positive or pertinent negative responses have been documented in the HPI. ROS Other: All systems not noted in ROS Statement are negative. Past Medical History Past Medical History: Asthma Additional Past Medical History / Comment(s): Gallstones hypoglycemia History of Any Multi-Drug Resistant Organisms: None Reported Date of last positivie culture/infection: 10/14/16 MDRO Source:: Abdomen Past Surgical History: Section, Cholecystectomy, Tonsillectomy Additional Past Surgical History / Comment(s): x2 Past Anesthesia/Blood Transfusion Reactions: No Reported Reaction Past Psychological History: ADD/ADHD, Anxiety, Depression, Panic Disorder, PTSD Smoking Status: Current every day smoker Past Alcohol Use History: None Reported Past Drug Use History: None Reported - Past Family History Father Family Medical History: Cancer Additional Family Medical History / Comment(s): Bladder cancer. Mother Additional Family Medical History / Comment(s): HX of Bipolar General Exam Limitations: no limitations General appearance: alert, in no apparent distress Respiratory exam: Present: normal lung sounds bilaterally. Absent: respiratory distress, wheezes, rales, rhonchi, stridor Cardiovascular Exam: Present: regular rate, normal rhythm, normal heart sounds. Absent: systolic murmur, diastolic murmur, rubs, gallop, clicks Skin exam: Present: warm, dry, rash (Bilateral feet There are erythematous papular rash along the edges of her sole with no open lesions or sores pedal pulses are equal bilaterally and cap refill less than 2 seconds. There is some callusing noted to the heels) Course Vital Signs 03/02/17 16:41 Temperature 98.5 F Pulse Rate 64 Respiratory 18 Rate Blood Pressure 113/67 O2 Sat by Pulse 96 Oximetry Medical Decision Making - Medical Decision Making 31-year-old presented emergency from for rash her feet. She does have some blistering papular type rash with erythema. I did explain this could be something bacterial/fungal or may just be a viral rash. Patient be given antibiotics, antifungal creams at this time. Patient is coming there is painful and we given very limited supply pain medication. She states she has appointment with her primary care physician on Friday and return if symptoms worsen. Disposition Clinical Impression: Rash and nonspecific skin eruption Disposition: HOME SELF-CARE Condition: Stable Instructions: Acute Rash (ED) Additional Instructions: Please return to the Emergency Department if symptoms worsen or any other concerns. Prescriptions: Acetaminophen-Codeine 300-30mg [Tylenol #3] 1 tab PO Q4H PRN #10 tablet PRN Reason: pain Clotrimazole/Betamethasone Dip [Lotrisone Cream] 1 applic TOPICAL BID #45 gm Sulfamethox-Tmp 800-160Mg [Bactrim Ds] 1 each PO Q12HR #20 tab Referrals: Veronica Montenegro MD [Primary Care Provider] - 1-2 days Time of Disposition: 17:18
== END 2017-03-02 17:30 | disposition home or self-care (01) ==
LOC: EC 16:26
DX: R21 Rash and other nonspecific skin eruption (principal); Z79.899 Other long term (current) drug therapy
CPT/HCPCS: 99283

== ENCOUNTER 2017-11-03 14:01 | Emergency (ER) | payer OTHER ==
[2017-11-03 14:08] VITALS: BP 122/82; RESP 18; TEMP 98.1
[2017-11-03] MEDS ORDERED: IPRATROPIUM-ALBUTEROL 3 ML NEB INHALATION STA (14:47)
--- NOTE | 2017-11-03 14:52 | ED ---
URI HPI - General Chief Complaint: Upper Respiratory Infection Stated Complaint: URI Time Seen by Provider: 11/03/17 14:25 Source: patient, RN notes reviewed Mode of arrival: ambulatory Limitations: no limitations - History of Present Illness Initial Comments: This is a 32-year-old female who presents to the emergency department with chief complaint of upper respiratory infection. Patient states that she is a current every day smoker, however she admits to quitting today. She states that she was diagnosed with asthma as an adult. Patient states that she has had a productive cough for the past 2 weeks. She states that she has also had sinus congestion and when she blows her nose there is yellow/green drainage. She denies any fevers or chills. She does state that she has been using her albuterol inhaler a couple times per day but denies any difficulty breathing. Denies chest pain, shortness of breath, abdominal pain, nausea or vomiting, constipation or diarrhea, dysuria or hematuria, numbness or tingling, headache or vision changes. - Related Data Home Medications Medication Instructions Recorded Confirmed Loratadine [Claritin] 10 mg PO DAILY 02/17/17 02/24/17 valACYclovir [Valtrex] 500 mg PO DAILY 02/17/17 02/24/17 Previous Rx's Medication Instructions Recorded Albuterol Inhaler [Ventolin Hfa 2 puff INHALATION RT-TID PRN puff 02/28/17 Inhaler] FLUoxetine HCL [PROzac] 40 mg PO DAILY #30 cap 02/28/17 Nicotine Polacrilex [Nicorette] 2 mg BUCCAL Q2HR PRN #30 pieceofgum 02/28/17 Acetaminophen-Codeine 300-30mg 1 tab PO Q4H PRN #10 tablet 03/02/17 [Tylenol #3] Clotrimazole/Betamethasone Dip 1 applic TOPICAL BID #45 gm 03/02/17 [Lotrisone Cream] Sulfamethox-Tmp 800-160Mg [Bactrim 1 each PO Q12HR #20 tab 03/02/17 Ds] Amoxicillin/Potassium Clav 1 tab PO Q12HR #14 tab 11/03/17 [Augmentin 875-125 Tablet] Allergies Allergy/AdvReac Type Severity Reaction Status Date / Time No Known Allergies Allergy Verified 11/03/17 14:08 Review of Systems ROS Statement: Those systems with pertinent positive or pertinent negative responses have been documented in the HPI. ROS Other: All systems not noted in ROS Statement are negative. Past Medical History Past Medical History: Asthma Additional Past Medical History / Comment(s): Gallstones hypoglycemia History of Any Multi-Drug Resistant Organisms: None Reported Date of last positivie culture/infection: 10/14/16 MDRO Source:: Abdomen Past Surgical History: Section, Cholecystectomy, Tonsillectomy Additional Past Surgical History / Comment(s): x2 Past Anesthesia/Blood Transfusion Reactions: No Reported Reaction Past Psychological History: ADD/ADHD, Anxiety, Depression, Panic Disorder, PTSD Smoking Status: Current every day smoker Past Alcohol Use History: None Reported Past Drug Use History: None Reported - Past Family History Father Family Medical History: Cancer Additional Family Medical History / Comment(s): Bladder cancer. Mother Additional Family Medical History / Comment(s): HX of Bipolar General Exam - General Exam Comments Initial Comments: General: Awake and alert, well-developed; in no apparent distress. Afebrile. HEENT: Head atraumatic, normocephalic. Pupils are equal, round and reactive to light. Extraocular movements intact. Oropharynx moist without erythema or exudate. Bilateral TMs are pearly without effusion. Tenderness on palpation of bilateral maxillary and frontal sinuses. Neck: Supple. Normal ROM. Cardiovascular: Regular rate and rhythm. No murmurs, rubs or gallops. Chest symmetrical. Respiratory: Diminished lung sounds throughout all lung zabala, especially on the right. No wheezes, rales or rhonchi. Normal respiratory effort with no use of accessory muscles. Musculoskeletal: Normal ROM, no tenderness bilateral upper and lower extremities. Ambulating normally. Skin: [place], warm and dry without rashes or lesions. Neurological: Alert and oriented x3. CN II-XII grossly intact. Speech is fluent and answers are appropriate. No focal neuro deficits. Psychiatric: Normal mood and affect. No overt signs of depression or anxiety noted. Limitations: no limitations Course Vital Signs 11/03/17 11/03/17 14:05 15:18 Temperature 98.1 F Pulse Rate 104 H 100 Respiratory 18 Rate Blood Pressure 122/82 O2 Sat by Pulse 96 Oximetry Medical Decision Making - Medical Decision Making This is a 32-year-old female who presents to the emergency department with chief complaint of cough and congestion. Patient states that she has had a productive cough and facial congestion for the past 2 weeks. There is tenderness on palpation of maxillary and frontal sinuses. Patient will be treated for a sinus infection with Augmentin. Lung sounds are diminished throughout, especially on the right. Patient received a breathing treatment while in the emergency department. Lung sounds have improved. Patient's vital signs are stable and she is in no acute distress. He will be discharged home. Patient is in agreement with plan and voices understanding. All questions were answered. Recommended using her albuterol inhaler every 4 hours. - Radiology Data Radiology results: report reviewed Chest x-ray impression: No acute cardiopulmonary process. Disposition Clinical Impression: Sinusitis Disposition: HOME SELF-CARE Condition: Good Instructions: Rhinosinusitis (ED) Additional Instructions: Please take medications as prescribed. Please use your albuterol inhaler every 4 hours. Please follow up with primary care provider within 1-2 days. Return to emergency department if symptoms should worsen or any concerns arise. Prescriptions: Amoxicillin/Potassium Clav [Augmentin 875-125 Tablet] 1 tab PO Q12HR #14 tab Referrals: Veronica Montenegro MD [Primary Care Provider] - 1-2 days Time of Disposition: 15:38
--- NOTE | 2017-11-03 15:09 | XR ---
EXAMINATION TYPE: XR chest 2V DATE OF EXAM: 11/03/2017 COMPARISON: 05/21/2012 HISTORY: Cough and congestion TECHNIQUE: Frontal and lateral views of the chest are obtained. FINDINGS: There is no focal air space opacity, pleural effusion, or pneumothorax seen. The cardiac silhouette size is within normal limits. The osseous structures are intact. IMPRESSION: No acute cardiopulmonary process.
[2017-11-03 15:30] VITALS: PULSE 96
== END 2017-11-03 15:42 | disposition home or self-care (01) ==
LOC: EC 14:01
DX: J32.9 Chronic sinusitis, unspecified (principal); J45.909 Unspecified asthma, uncomplicated; F17.200 Nicotine dependence, unspecified, uncomplicated; Z79.899 Other long term (current) drug therapy
CPT/HCPCS: 71046; 94640; 99283

== ENCOUNTER 2018-06-25 23:53 | Emergency (ER) | payer OTHER ==
[2018-06-25] MEDS ORDERED: KETOROLAC 30 MG/ML 1 ML VIAL IM STA (23:56)
[2018-06-25] MEDS ORDERED: DIPH,PERTUS(ACELL)TETVAC-LF 0.5 ML VIAL IM ONE (23:56)
[2018-06-26 00:08] VITALS: RESP 16; TEMP 98
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
[2018-06-26 00:39] VITALS: BP 140/89; PULSE 96
== END 2018-06-26 00:38 | disposition home or self-care (01) ==
LOC: EC 23:53
DX: T23.252A Burn of second degree of left palm, initial encounter (principal); F17.200 Nicotine dependence, unspecified, uncomplicated; Z23 Encounter for immunization; Z79.899 Other long term (current) drug therapy; X15.0XXA Contact with hot stove (kitchen), initial encounter
CPT/HCPCS: 99284 ×2; 96372 ×2; 90471 ×2; 16020; 99282; 90715; J1885

== ENCOUNTER 2018-06-26 23:51 | Emergency (ER) | payer OTHER ==
[2018-06-26 23:59] VITALS: BP 132/91; PULSE 109; RESP 20; TEMP 98.3
[2018-06-27] MEDS ORDERED: IBUPROFEN 600 MG STARTER PACK 4 TAB BTL PO STA (00:36)
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
== END 2018-06-27 00:53 | disposition home or self-care (01) ==
LOC: EC 23:51
DX: T23.15 Burn of first degree of palm (principal); F17.200 Nicotine dependence, unspecified, uncomplicated; Z79.899 Other long term (current) drug therapy; X15.0XXD Contact with hot stove (kitchen), subsequent encounter
CPT/HCPCS: 16020; 99282

== ENCOUNTER 2018-07-22 08:41 | Inpatient (IN) | payer MEDICAID, OTHER ==
--- NOTE | 2018-07-22 09:19 | ED ---
Psych HPI - General Chief Complaint: Psychiatric Symptoms Stated Complaint: EPS eval Time Seen by Provider: 07/22/18 08:53 Source: patient, RN notes reviewed Mode of arrival: ambulatory Limitations: no limitations - History of Present Illness Initial Comments: 33-year-old female presents emergency Department chief complaint depression, suicidal ideation. Patient states that she is out of her medications she states she's been waiting for her primary care physician to prescribe them. Patient does not have a current psychiatrist. Patient states that she's having thoughts of overdosing. Patient denies any self-harm at this time. She does admit to marijuana and cocaine use. Patient denies any current chest pain, shortness breath, headache, dizziness, nausea vomiting. Patient denies any chance . Patient states that she does want help at this time. - Related Data Home Medications Medication Instructions Recorded Confirmed Loratadine [Claritin] 10 mg PO DAILY 02/17/17 07/22/18 valACYclovir [Valtrex] 500 mg PO DAILY 02/17/17 07/22/18 Albuterol Inhaler [Ventolin Hfa 2 puff INHALATION RT-Q4H PRN 07/22/18 07/22/18 Inhaler] Atomoxetine HCl [Strattera] 40 mg PO QAM 07/22/18 07/22/18 Cyanocobalamin (Vitamin B-12) 1,000 mcg PO DAILY 07/22/18 07/22/18 [Vitamin B-12] FLUoxetine HCL [PROzac] 20 mg PO DAILY 07/22/18 07/22/18 Gabapentin 600 mg PO TID 07/22/18 07/22/18 Naproxen 500 mg PO BID PRN 07/22/18 07/22/18 Omeprazole 20 mg PO DAILY 07/22/18 07/22/18 Triamcinolone 0.1% Cream [Kenalog 1 applicatio TOPICAL BID 07/22/18 07/22/18 0.1% Cream] traZODone HCL 50 mg PO HS 07/22/18 07/22/18 Allergies Allergy/AdvReac Type Severity Reaction Status Date / Time iodine AdvReac Verified 07/22/18 10:21 Review of Systems ROS Statement: Those systems with pertinent positive or pertinent negative responses have been documented in the HPI. ROS Other: All systems not noted in ROS Statement are negative. Past Medical History Past Medical History: Asthma Additional Past Medical History / Comment(s): Gallstones hypoglycemia History of Any Multi-Drug Resistant Organisms: None Reported Date of last positivie culture/infection: 10/14/16 MDRO Source:: Abdomen Past Surgical History: Section, Cholecystectomy, Tonsillectomy Additional Past Surgical History / Comment(s): x2 Past Anesthesia/Blood Transfusion Reactions: No Reported Reaction Past Psychological History: ADD/ADHD, Anxiety, Depression, Panic Disorder, PTSD Smoking Status: Current every day smoker Past Alcohol Use History: Occasional Past Drug Use History: Cocaine, Marijuana - Past Family History Father Family Medical History: Cancer Additional Family Medical History / Comment(s): Bladder cancer. Mother Additional Family Medical History / Comment(s): HX of Bipolar General Exam Limitations: no limitations General appearance: alert, in no apparent distress Head exam: Present: atraumatic, normocephalic, normal inspection Eye exam: Present: normal appearance, PERRL, EOMI. Absent: scleral icterus, conjunctival injection, periorbital swelling ENT exam: Present: normal exam, normal oropharynx, mucous membranes moist Neck exam: Present: normal inspection. Absent: tenderness, meningismus, lymphadenopathy Respiratory exam: Present: normal lung sounds bilaterally. Absent: respiratory distress, wheezes, rales, rhonchi, stridor Cardiovascular Exam: Present: normal rhythm, tachycardia (Heart rate 114), normal heart sounds. Absent: systolic murmur, diastolic murmur, rubs, gallop, clicks GI/Abdominal exam: Present: soft, normal bowel sounds. Absent: distended, tenderness, guarding, rebound, rigid Neurological exam: Present: alert, oriented X3 Psychiatric exam: Present: depressed, flat affect Course Vital Signs 07/22/18 08:48 Temperature 98.2 F Pulse Rate 114 H Respiratory 18 Rate Blood Pressure 134/95 O2 Sat by Pulse 98 Oximetry Medical Decision Making - Medical Decision Making Patient was evaluated by EPS and discussed with psychiatrist. Psychiatry will admit the patient for further evaluation and treatment. - Lab Data Lab Results 07/22/18 07/22/18 Range/Units 09:10 09:10 Urine HCG, Qual Not Detected (Not Detectd) Urine Opiates Screen Not Detected (NotDetected) Ur Oxycodone Screen Not Detected (NotDetected) Urine Methadone Screen Not Detected (NotDetected) Ur Propoxyphene Screen Not Detected (NotDetected) Ur Barbiturates Screen Not Detected (NotDetected) U Tricyclic Antidepress Not Detected (NotDetected) Ur Phencyclidine Scrn Not Detected (NotDetected) Ur Amphetamines Screen Not Detected (NotDetected) U Methamphetamines Scrn Not Detected (NotDetected) U Benzodiazepines Scrn Not Detected (NotDetected) Urine Cocaine Screen Detected H (NotDetected) U Marijuana (THC) Screen Detected H (NotDetected) Disposition Clinical Impression: Cocaine use disorder, mild, abuse, Suicidal ideation, Depression Disposition: ADMITTED IP TO THIS HOSP Referrals: Veronica Montenegro MD [Primary Care Provider] - 1-2 days
[2018-07-22 10:35] LABS: Amphetamine Screen,Urine Not Detected (NotDetected); Barbiturate Screen,Urine Not Detected (NotDetected); Benzodiazepines Screen,Urine Not Detected (NotDetected); Cocaine Screen,Urine Detected (NotDetected); Methadone Screen, Urine Not Detected (NotDetected); Opiate Screen,Urine Not Detected (NotDetected); Oxycodone Screen, Urine Not Detected (NotDetected); Phencyclidine Screen,Urine Not Detected (NotDetected); Tricyclic Antidepressant,Urine Not Detected (NotDetected); Urn Cannabinoid Scrn Detected (NotDetected)
[2018-07-22] MEDS ORDERED: MAGNESIUM HYDROXIDE 2,400 MG/10 ML CUP PO PRN (13:31)
[2018-07-22] MEDS ORDERED: ZIPRASIDONE 20 MG VIAL IM PRN (13:31)
[2018-07-22] MEDS ORDERED: ACETAMINOPHEN TAB 325 MG TAB PO PRN (13:31)
[2018-07-22] MEDS ORDERED: MAG HYDROX/AL HYDROX/SIMETH 30 ML CUP PO PRN (13:31)
[2018-07-22] MEDS: NAPROXEN 250 MG TAB PO PRN (14:03)
[2018-07-22] MEDS: NICOTINE 14MG/24HR PATCH TRANSDERM SCH (14:03)
[2018-07-22] MEDS: LORazepam 1 MG TAB PO PRN (14:03)
[2018-07-22 14:31] VITALS: BMI 33.9
[2018-07-22] MEDS: GABAPENTIN 300 MG CAP PO SCH ×2 (16:38→21:03)
[2018-07-22] MEDS: CYCLOBENZAPRINE 10 MG TAB PO PRN (19:55)
[2018-07-22] MEDS: traZODone HCL 50 MG TAB PO SCH (21:03)
[2018-07-22] MEDS: ALBUTEROL INHALER 60 PUFF/8 GM INHALER INHALATION PRN (21:03)
[2018-07-23] MEDS ORDERED: FLUoxetine HCL 20 MG CAP PO SCH (09:00)
[2018-07-23] MEDS: valACYclovir 500 MG TAB PO SCH (09:01)
[2018-07-23] MEDS: LORATADINE 10 MG TAB PO SCH (09:01)
[2018-07-23] MEDS: GABAPENTIN 300 MG CAP PO SCH ×2 (09:01→20:54)
[2018-07-23] MEDS: PANTOPRAZOLE 40 MG TABLET PO SCH (09:01)
[2018-07-23] MEDS: NICOTINE 14MG/24HR PATCH TRANSDERM SCH (09:01)
[2018-07-23] MEDS: LORazepam 1 MG TAB PO PRN ×2 (09:02→17:01)
[2018-07-23 09:49] LABS: Glucose,Whole Blood 105 mg/dL (75-99)
[2018-07-23 10:08] LABS: Basophils % (A) 1 %; Eosinophils # (A) 0.2 k/uL (0-0.7); Eosinophils % (A) 5 %; HCT 46.8 % (34.0-46.0); HGB 15.8 gm/dL (11.4-16.0); Lymphocytes # (A) 1.5 k/uL (1.0-4.8); Lymphocytes % (A) 38 %; MCH 30.9 pg (25.0-35.0); MCHC 33.8 g/dL (31.0-37.0); MCV 91.5 fL (80.0-100.0); Mean Platelet Volume 7.1; Monocytes # (A) 0.3 k/uL (0-1.0); Monocytes % (A) 8 %; Neutrophils # (A) 1.8 k/uL (1.3-7.7); Neutrophils % (A) 47 %; Platelet Count 263 k/uL (150-450); RBC 5.11 m/uL (3.80-5.40); RDW 15.2 % (11.5-15.5); WBC 3.8 k/uL (3.8-10.6)
[2018-07-23] MEDS ORDERED: CALAMINE/ZINC OXIDE LOTION 177 ML BTL TOPICAL PRN (10:15)
[2018-07-23 10:16] LABS: Albumin 4.4 g/dL (3.5-5.0); Calcium 9.6 mg/dL (8.4-10.2); Total Bilirubin 0.4 mg/dL (0.2-1.3); Total Protein 7.8 g/dL (6.3-8.2)
[2018-07-23 10:31] LABS: Potassium 4.8 mmol/L (3.5-5.1)
[2018-07-23] MEDS: CYANOCOBALAMIN 500 MCG TAB PO SCH (11:46)
--- NOTE | 2018-07-23 13:08 | P.HP ---
Psychiatric H&P - . H&P Date: 07/23/18 History & Physical: Allergies Allergy/AdvReac Type Severity Reaction Status Date / Time iodine AdvReac Verified 07/22/18 10:21 Vital Signs Temp 98.0 F 07/23/18 06:42 Pulse 63 07/23/18 06:42 Resp 16 07/23/18 06:42 BP 109/57 07/23/18 06:42 Pulse Ox 95 07/22/18 13:29 Intake & Output 07/22/18 07/23/18 07/23/18 18:59 06:59 18:59 Weight 86.9 kg Laboratory Last Values POC Glucose (mg/dL) 105 mg/dL (75-99) H 07/23/18 09:34 POC Glu [employer]p Developer ID Sue Roberts 07/23/18 09:34 Urine HCG, Qual Not Detected (Not Detectd) 07/22/18 09:10 Urine Opiates Screen Not Detected (NotDetected) 07/22/18 09:10 Ur Oxycodone Screen Not Detected (NotDetected) 07/22/18 09:10 Urine Methadone Screen Not Detected (NotDetected) 07/22/18 09:10 Ur Propoxyphene Screen Not Detected (NotDetected) 07/22/18 09:10 Ur Barbiturates Screen Not Detected (NotDetected) 07/22/18 09:10 U Tricyclic Antidepress Not Detected (NotDetected) 07/22/18 09:10 Ur Phencyclidine Scrn Not Detected (NotDetected) 07/22/18 09:10 Ur Amphetamines Screen Not Detected (NotDetected) 07/22/18 09:10 U Methamphetamines Scrn Not Detected (NotDetected) 07/22/18 09:10 U Benzodiazepines Scrn Not Detected (NotDetected) 07/22/18 09:10 Urine Cocaine Screen Detected (NotDetected) H 07/22/18 09:10 U Marijuana (THC) Screen Detected (NotDetected) H 07/22/18 09:10 Assessment and Plan (1) Major depressive disorder, recurrent Narrative/Plan: HPI: This is a 33-year-old female presents emergency Department chief complaint depression, suicidal ideation. Patient states that she is out of her medications she states she's been waiting for her primary care physician to prescribe them. Patient does not have a current psychiatrist. Patient states that she's having thoughts of overdosing. Patient denies any self-harm at this time. She does admit to marijuana and cocaine use. Patient denies any current chest pain, shortness breath, headache, dizziness, nausea vomiting. Patient denies any chance . Patient states that she does want help at this time. - Related Data Home Medications Medication Instructions Recorded Confirmed Loratadine [Claritin] 10 mg PO DAILY 02/17/17 07/22/18 valACYclovir [Valtrex] 500 mg PO DAILY 02/17/17 07/22/18 Albuterol Inhaler [Ventolin Hfa 2 puff INHALATION RT-Q4H PRN 07/22/18 07/22/18 Inhaler] Atomoxetine HCl [Strattera] 40 mg PO QAM 07/22/18 07/22/18 Cyanocobalamin (Vitamin B-12) 1,000 mcg PO DAILY 07/22/18 07/22/18 [Vitamin B-12] FLUoxetine HCL [PROzac] 20 mg PO DAILY 07/22/18 07/22/18 Gabapentin 600 mg PO TID 07/22/18 07/22/18 Naproxen 500 mg PO BID PRN 07/22/18 07/22/18 Omeprazole 20 mg PO DAILY 07/22/18 07/22/18 Triamcinolone 0.1% Cream [Kenalog 1 applicatio TOPICAL BID 07/22/18 07/22/18 0.1% Cream] traZODone HCL 50 mg PO HS 07/22/18 07/22/18 Allergies Allergy/AdvReac Type Severity Reaction Status Date / Time iodine AdvReac Verified 07/22/18 10:21 Past Medical History Past Medical History: Asthma Additional Past Medical History / Comment(s): Gallstones hypoglycemia History of Any Multi-Drug Resistant Organisms: None Reported Date of last positivie culture/infection: 10/14/16 MDRO Source:: Abdomen Past Surgical History: Section, Cholecystectomy, Tonsillectomy Additional Past Surgical History / Comment(s): x2 Past Anesthesia/Blood Transfusion Reactions: No Reported Reaction Past Psychological History: ADD/ADHD, Anxiety, Depression, Panic Disorder, PTSD Smoking Status: Current every day smoker Past Alcohol Use History: Occasional Past Drug Use History: Cocaine, Marijuana - Past Family History Father Family Medical History: Cancer Additional Family Medical History / Comment(s): Bladder cancer. Mother Additional Family Medical History / Comment(s): HX of Bipolar Musculoskeletal Examination - Abnormal/Involuntary Movements: [none] Strength: [greater than antigravity (greater than/equal to 3/5) in all extremities:] Muscle Tone: [no impairment] Gait: [grossly normal] Station: [grossly normal Mental Status Examination - General Appearance: [disheveled, casual, appears older than stated age Speech/Language: [spontaneous, rapid, rambled,expressive, loud] Attitude/Behavior: [cooperative,irritable Mood: [ depressed, anxious, elated, irritable, fearful, hopelessness] Affect: [lively, incongruent, labile, Orientation: [time, person, place situation] Thought Content: [wnl Risk Factors: [she is suicidal (ideations, plan), and/or Homicidal (ideations, plan), other] Perception: [wnl Thought Processes: [ concrete Concentration/Attention Span: [impaired] [Per observation and interview with the patient] Recent Memory: [impaired] [ 1 out of 3 in 3 minutes] Remote Memory: [wnl] [past events, as related history] Intelligence: [below average] [based on history, based on vocabulary, syntax, grammar, and content] Judgement: [ poor] [per patient's behavior/history of present illness] Insight: [ poor] [understanding severity of illness/history of present illness] Admitting Diagnosis: [bipolar affective [id number] ] Patient Strengths - Steady employment/financial stability: [] Housing stability: [x] Able to vocalize needs: [x] Motivation, determination, readiness for change: [x] Patient Limitations: [medication, non-compliance, pathological/unsupported environment, intellectual impairment, lack of social supports Initial Plan of Care: [admit voluntary, 15 minute checks, evaluation by medicine , psychiatric, nursing, social work and start invega 3 mg and topamax 25 mg bid , decrease gabapentin.] Estimated Length of Stay: [5-7] Initial Discharge Plan: [home, [facility], referred to therapist Prognosis: [ guarded] Justification for Inpatient Hospitalization - [Hallucinations, delusions, agitation, anxiety, depression resulting in significant loss of functioning.] [Dangerous to self, others, or property with need for controlled environment.] [Emotional or behavioral conditions and complications requiring 24 hour medical and nursing care.] [Need for special drug therapy, or other therapeutic program requiring continuous hospitalization.] [Failure of social or occupational functioning.] [Inability to meet basic life and health needs.] Current Visit: No Status: Acute Priority: High Code(s): F33.9 - MAJOR DEPRESSIVE DISORDER, RECURRENT, UNSPECIFIED SNOMED Code(s): 88779511 (2) Cocaine use disorder, mild, abuse Current Visit: Yes Status: Acute Priority: High Code(s): F14.10 - COCAINE ABUSE, UNCOMPLICATED SNOMED Code(s): 73453917 Time with Patient: Less than 30
--- NOTE | 2018-07-23 15:43 | P.CONS ---
History of Present Illness - Reason for Consult Sinus tachycardia - History of Present Illness 33-year-old female admitted for depression and suicidal ideation to psychiatric floor patient is tachycardic I believe initial tachycardia secondary to cocaine use patient admits to using cocaine before she came in here her urine drug screen is positive for cocaine and marijuana. Patient is still bit tachycardic now I believe is secondary to anxiety that doesn't improve we'll do further workup for for her sinus tachycardia as of now will just monitor her here. Denied any fever chills cough runny nose does smoke Review of Systems REVIEW OF SYSTEMS: CONSTITUTIONAL: No fever, no malaise, no fatigue. HEENT: No recent visual problems or hearing problems. Denied any sore throat. CARDIOVASCULAR: No chest pain, orthopnea, PND, no palpitations, no syncope. PULMONARY: No shortness of breath, no cough, no hemoptysis. GASTROINTESTINAL: No diarrhea, no nausea, no vomiting, no abdominal pain. Normoactive bowel sounds. NEUROLOGICAL: No headaches, no weakness, no numbness. HEMATOLOGICAL: Denies any bleeding or petechiae. GENITOURINARY: Denies any burning micturition, frequency, or urgency. MUSCULOSKELETAL/RHEUMATOLOGICAL: Denies any joint pain, swelling, or any muscle pain. ENDOCRINE: Denies any polyuria or polydipsia. The rest of the 14-point review of systems is negative. Past Medical History Past Medical History: Asthma Additional Past Medical History / Comment(s): Gallstones hypoglycemia History of Any Multi-Drug Resistant Organisms: None Reported Year Discovered:: 10/14/16 MDRO Source:: Abdomen Past Surgical History: Section, Cholecystectomy, Tonsillectomy Additional Past Surgical History / Comment(s): x2 Past Anesthesia/Blood Transfusion Reactions: No Reported Reaction Smoking Status: Current every day smoker - Past Family History Father Family Medical History: Cancer Additional Family Medical History / Comment(s): Bladder cancer. Mother Additional Family Medical History / Comment(s): HX of Bipolar Medications and Allergies Home Medications Medication Instructions Recorded Confirmed Type Loratadine [Claritin] 10 mg PO DAILY 02/17/17 07/22/18 History valACYclovir [Valtrex] 500 mg PO DAILY 02/17/17 07/22/18 History Albuterol Inhaler [Ventolin Hfa 2 puff INHALATION RT-Q4H PRN 07/22/18 07/22/18 History Inhaler] Atomoxetine HCl [Strattera] 40 mg PO QAM 07/22/18 07/22/18 History Cyanocobalamin (Vitamin B-12) 1,000 mcg PO DAILY 07/22/18 07/22/18 History [Vitamin B-12] FLUoxetine HCL [PROzac] 20 mg PO DAILY 07/22/18 07/22/18 History Gabapentin 600 mg PO TID 07/22/18 07/22/18 History Naproxen 500 mg PO BID PRN 07/22/18 07/22/18 History Omeprazole 20 mg PO DAILY 07/22/18 07/22/18 History Triamcinolone 0.1% Cream [Kenalog 1 applicatio TOPICAL BID 07/22/18 07/22/18 History 0.1% Cream] traZODone HCL 50 mg PO HS 07/22/18 07/22/18 History Allergies Allergy/AdvReac Type Severity Reaction Status Date / Time iodine AdvReac Verified 07/22/18 10:21 Physical Exam Vitals: Vital Signs Temp Pulse Resp BP 07/23/18 06:42 98.0 F 63 16 109/57 07/22/18 19:57 98.4 F 67 15 124/68 PHYSICAL EXAMINATION: GENERAL: The patient is alert and oriented x3, not in any acute distress. Well developed, well nourished. HEENT: Pupils are round and equally reacting to light. EOMI. No scleral icterus. No conjunctival pallor. Normocephalic, atraumatic. No pharyngeal erythema. No thyromegaly. CARDIOVASCULAR: S1 and S2 present. No murmurs, rubs, or gallops. Patient does have sinus tachycardia PULMONARY: Chest is clear to auscultation, no wheezing or crackles. ABDOMEN: Soft, nontender, nondistended, normoactive bowel sounds. No palpable organomegaly. MUSCULOSKELETAL: No joint swelling or deformity. EXTREMITIES: No cyanosis, clubbing, or pedal edema. NEUROLOGICAL: Gross neurological examination did not reveal any focal deficits. SKIN: No rashes. Results CBC & Chem 7: 07/23/18 09:46 07/23/18 09:46 Labs: Abnormal Lab Results - Last 24 Hours (Table) 11/29/18 11/29/18 11/29/18 Range/Units 09:34 09:46 09:46 Hct 46.8 H (34.0-46.0) % Chloride 109 H (98-107) mmol/L Carbon Dioxide 20 L (22-30) mmol/L POC Glucose (mg/dL) 105 H (75-99) mg/dL Assessment and Plan Plan: -Sinus tachycardia: Secondary to anxiety, we'll monitor. No further intervention at this point of time -Cocaine, marijuana, nicotine abuse: Counseling was provided -Major depression with suicidal ideation management as per primary service
[2018-07-23] MEDS: cloNIDine HCL 0.1 MG TAB PO SCH ×2 (16:58→20:54)
[2018-07-23] MEDS: ALBUTEROL INHALER 60 PUFF/8 GM INHALER INHALATION PRN (19:16)
[2018-07-23] MEDS: TOPIRAMATE 25 MG TAB PO SCH (20:54)
[2018-07-23] MEDS: traZODone HCL 50 MG TAB PO SCH (20:54)
[2018-07-23] MEDS: CYCLOBENZAPRINE 10 MG TAB PO PRN (20:54)
[2018-07-23] MEDS ORDERED: HALOPERIDOL 1 MG TAB PO SCH (21:00)
[2018-07-23] MEDS ORDERED: TRIAMCINOLONE 0.1% CREAM 80 GM TUBE TOPICAL SCH (21:00)
[2018-07-23] MEDS ORDERED: PALIPERIDONE 3 MG TAB.ER.24 PO SCH (21:00)
[2018-07-24] MEDS: GABAPENTIN 300 MG CAP PO SCH ×2 (08:14→21:16)
[2018-07-24] MEDS: NAPROXEN 250 MG TAB PO PRN (08:14)
[2018-07-24] MEDS: LORATADINE 10 MG TAB PO SCH (08:14)
[2018-07-24] MEDS: PANTOPRAZOLE 40 MG TABLET PO SCH (08:14)
[2018-07-24] MEDS: valACYclovir 500 MG TAB PO SCH (08:15)
[2018-07-24] MEDS: NICOTINE 14MG/24HR PATCH TRANSDERM SCH (08:15)
[2018-07-24] MEDS: cloNIDine HCL 0.1 MG TAB PO SCH ×3 (08:15→21:14)
[2018-07-24] MEDS: TOPIRAMATE 25 MG TAB PO SCH ×2 (08:15→21:19)
[2018-07-24] MEDS: LORazepam 1 MG TAB PO PRN ×2 (08:26→14:21)
[2018-07-24] MEDS: CYANOCOBALAMIN 500 MCG TAB PO SCH (11:54)
--- NOTE | 2018-07-24 13:24 | P.PN ---
Subjective Progress Note Date: 07/24/18 Principal diagnosis: Bipolar affective disorder: Alcohol use disorder severe: Polysubstance abuse Feeling anxious today and I blood pressures up. I'm also recovering from alcohol use. I called [facility] to see if I can get admitted there for polysubstance abuse in a residential treatment setting. Objective - Vital Signs Vital signs: Vital Signs Temp 98.1 F 07/24/18 07:29 Pulse 80 07/24/18 08:26 Resp 18 07/24/18 08:26 BP 143/112 07/24/18 08:26 Pulse Ox 95 07/22/18 13:29 - Labs CBC & Chem 7: 07/23/18 09:46 07/23/18 09:46 Assessment and Plan (1) Major depressive disorder, recurrent Narrative/Plan: HPI: This is a 33-year-old female presents emergency Department chief complaint depression, suicidal ideation. Patient states that she is out of her medications she states she's been waiting for her primary care physician to prescribe them. Patient does not have a current psychiatrist. Patient states that she's having thoughts of overdosing. Patient denies any self-harm at this time. She does admit to marijuana and cocaine use. Patient denies any current chest pain, shortness breath, headache, dizziness, nausea vomiting. Patient denies any chance . Patient states that she does want help at this time. - Related Data Home Medications Medication Instructions Recorded Confirmed Loratadine [Claritin] 10 mg PO DAILY 02/17/17 07/22/18 valACYclovir [Valtrex] 500 mg PO DAILY 02/17/17 07/22/18 Albuterol Inhaler [Ventolin Hfa 2 puff INHALATION RT-Q4H PRN 07/22/18 07/22/18 Inhaler] Atomoxetine HCl [Strattera] 40 mg PO QAM 07/22/18 07/22/18 Cyanocobalamin (Vitamin B-12) 1,000 mcg PO DAILY 07/22/18 07/22/18 [Vitamin B-12] FLUoxetine HCL [PROzac] 20 mg PO DAILY 07/22/18 07/22/18 Gabapentin 600 mg PO TID 07/22/18 07/22/18 Naproxen 500 mg PO BID PRN 07/22/18 07/22/18 Omeprazole 20 mg PO DAILY 07/22/18 07/22/18 Triamcinolone 0.1% Cream [Kenalog 1 applicatio TOPICAL BID 07/22/18 07/22/18 0.1% Cream] traZODone HCL 50 mg PO HS 07/22/18 07/22/18 Allergies Allergy/AdvReac Type Severity Reaction Status Date / Time iodine AdvReac Verified 07/22/18 10:21 Past Medical History Past Medical History: Asthma Additional Past Medical History / Comment(s): Gallstones hypoglycemia History of Any Multi-Drug Resistant Organisms: None Reported Date of last positivie culture/infection: 10/14/16 MDRO Source:: Abdomen Past Surgical History: Section, Cholecystectomy, Tonsillectomy Additional Past Surgical History / Comment(s): x2 Past Anesthesia/Blood Transfusion Reactions: No Reported Reaction Past Psychological History: ADD/ADHD, Anxiety, Depression, Panic Disorder, PTSD Smoking Status: Current every day smoker Past Alcohol Use History: Occasional Past Drug Use History: Cocaine, Marijuana - Past Family History Father Family Medical History: Cancer Additional Family Medical History / Comment(s): Bladder cancer. Mother Additional Family Medical History / Comment(s): HX of Bipolar Musculoskeletal Examination - Abnormal/Involuntary Movements: [none] Strength: [greater than antigravity (greater than/equal to 3/5) in all extremities:] Muscle Tone: [no impairment] Gait: [grossly normal] Station: [grossly normal Mental Status Examination - General Appearance: [disheveled, casual, appears older than stated age Speech/Language: [spontaneous, rapid, rambled,expressive, loud] Attitude/Behavior: [cooperative,irritable Mood: [ depressed, anxious, elated, irritable, fearful, hopelessness] Affect: [lively, incongruent, labile, Orientation: [time, person, place situation] Thought Content: [wnl Risk Factors: [she is suicidal (ideations, plan), and/or Homicidal (ideations, plan), other] Perception: [wnl Thought Processes: [ concrete Concentration/Attention Span: [impaired] [Per observation and interview with the patient] Recent Memory: [impaired] [ 1 out of 3 in 3 minutes] Remote Memory: [wnl] [past events, as related history] Intelligence: [below average] [based on history, based on vocabulary, syntax, grammar, and content] Judgement: [ poor] [per patient's behavior/history of present illness] Insight: [ poor] [understanding severity of illness/history of present illness] Admitting Diagnosis: [bipolar affective [id number] ] Patient Strengths - Steady employment/financial stability: [] Housing stability: [x] Able to vocalize needs: [x] Motivation, determination, readiness for change: [x] Patient Limitations: [medication, non-compliance, pathological/unsupported environment, intellectual impairment, lack of social supports Initial Plan of Care: [admit voluntary, 15 minute checks, evaluation by medicine , psychiatric, nursing, social work and start invega 3 mg had to be changed to haloperidol 1 mg at bedtime on 07/23/2018 and increase today to haloperidol 2 mg by mouth daily at bedtime and topamax 50 mg daily at bedtime, decrease gabapentin.] Estimated Length of Stay: [5-7] Initial Discharge Plan: [home, [facility], referred to therapist Prognosis: [ guarded] Justification for Inpatient Hospitalization - [Hallucinations, delusions, agitation, anxiety, depression resulting in significant loss of functioning.] [Dangerous to self, others, or property with need for controlled environment.] [Emotional or behavioral conditions and complications requiring 24 hour medical and nursing care.] [Need for special drug therapy, or other therapeutic program requiring continuous hospitalization.] [Failure of social or occupational functioning.] [Inability to meet basic life and health needs.] Current Visit: No Status: Acute Priority: High Code(s): F33.9 - MAJOR DEPRESSIVE DISORDER, RECURRENT, UNSPECIFIED SNOMED Code(s): 36995098 (2) Cocaine use disorder, mild, abuse Current Visit: Yes Status: Acute Priority: High Code(s): F14.10 - COCAINE ABUSE, UNCOMPLICATED SNOMED Code(s): 90145746 Time with Patient: Less than 30
[2018-07-24] MEDS: ALBUTEROL INHALER 60 PUFF/8 GM INHALER INHALATION PRN (18:51)
[2018-07-24] MEDS: HALOPERIDOL 1 MG TAB PO SCH (21:17)
[2018-07-24] MEDS: traZODone HCL 50 MG TAB PO SCH (21:22)
[2018-07-24] MEDS: NALTREXONE HCL 50 MG TAB PO SCH (21:59)
[2018-07-25] MEDS: PANTOPRAZOLE 40 MG TABLET PO SCH (08:50)
[2018-07-25] MEDS: LORATADINE 10 MG TAB PO SCH (08:50)
[2018-07-25] MEDS: NICOTINE 14MG/24HR PATCH TRANSDERM SCH (08:50)
[2018-07-25] MEDS: NAPROXEN 250 MG TAB PO PRN (08:50)
[2018-07-25] MEDS: cloNIDine HCL 0.1 MG TAB PO SCH ×2 (08:51→16:17)
[2018-07-25] MEDS: GABAPENTIN 300 MG CAP PO SCH ×2 (08:52→21:13)
[2018-07-25] MEDS: valACYclovir 500 MG TAB PO SCH (08:52)
[2018-07-25] MEDS: CYANOCOBALAMIN 500 MCG TAB PO SCH (12:29)
[2018-07-25] MEDS: ALBUTEROL INHALER 60 PUFF/8 GM INHALER INHALATION PRN (12:48)
[2018-07-25] MEDS: LORazepam 1 MG TAB PO PRN ×2 (13:33→21:20)
--- NOTE | 2018-07-25 19:07 | P.PN ---
Progress Note - Text Progress Note Date: 07/25/18 IDENTIFICATION DATA: 33-year-old female admitted due to worsening depression, suicidal ideation and running out of her psychiatric medications. History of cocaine and marijuana abuse. INTERVAL HISTORY: She reports feeling tired, anxious, amotivated. depressed . She reports having bad nightmares with real people and flashbacks. She reports Prozac has helped her with depression when ever she took it and wants to be started back on it. She reports being prescribed neurontin 600mg po t id for nerve pain and wants to be continued on it. She sates she doesnt like taking clonidine and claims it makes her blood pressure too low. MENTAL STATUS EXAMINATION: Appeared stated age. dressed casually.. Fair grooming and hygiene. No abnormal movements noted. mood is reported as OK, affect flat. speech and thought process were goal directed.. denies current hallucinatios. denies paranoia. is alert and oriented x 4. denies current suicidal or homicidal ideations. insight and judgement are improving. ASSESSMENT AND PLAN: Will start her on Prozac to help her with depression, anxiety Will discontinue clonidine as she is unable to tolerate it. Will increase the dose of neurontin to 300mg po tId from 300mg po bid. She claims it helps her with nerve pain AND TAKES 600MG PO TID. Encouraged to take naltraxone Continue current treatment. Monitor for symptoms.
[2018-07-25] MEDS: TOPIRAMATE 25 MG TAB PO SCH (21:12)
[2018-07-25] MEDS: traZODone HCL 50 MG TAB PO SCH (21:13)
[2018-07-25] MEDS: NALTREXONE HCL 50 MG TAB PO SCH (21:13)
[2018-07-25] MEDS: HALOPERIDOL 1 MG TAB PO SCH (21:13)
[2018-07-26] MEDS: NAPROXEN 250 MG TAB PO PRN (07:40)
[2018-07-26] MEDS: FLUoxetine HCL 10 MG CAP PO SCH (07:40)
[2018-07-26] MEDS: NICOTINE 14MG/24HR PATCH TRANSDERM SCH ×2 (07:40→12:53)
[2018-07-26] MEDS: GABAPENTIN 300 MG CAP PO SCH ×3 (07:40→20:34)
[2018-07-26] MEDS: valACYclovir 500 MG TAB PO SCH (07:40)
[2018-07-26] MEDS: PANTOPRAZOLE 40 MG TABLET PO SCH (07:40)
[2018-07-26] MEDS: LORATADINE 10 MG TAB PO SCH (07:41)
[2018-07-26] MEDS: CYANOCOBALAMIN 500 MCG TAB PO SCH (11:32)
[2018-07-26 13:01] LABS: Glucose,Whole Blood 98 mg/dL (75-99)
[2018-07-26] MEDS: LORazepam 1 MG TAB PO PRN (14:48)
--- NOTE | 2018-07-26 16:40 | P.PN ---
Progress Note - Text Progress Note Date: 07/26/18 IDENTIFICATION DATA: 33-year-old female admitted due to worsening depression, suicidal ideation and running out of her psychiatric medications. History of cocaine and marijuana abuse. INTERVAL HISTORY: She reports feeling irritable, frustrated about some patients here who are trying to be nosy and trying to get her personal information. She says she tries to walk away from them and keeps her self busy with coloring and watching TV even though she wants to let them know to shut up but feels its very rude. She was encouraged to talk to staff about her issues who then can try to talk to other patients to not to bother her. She currently says she is ready to move on with her life. She reports her current medications are working well. Denies any side effects. She denies current symptoms of depression, PSYCHOSIS OR BUBBA. MENTAL STATUS EXAMINATION: Appeared stated age. dressed casually.. Fair grooming and hygiene. No abnormal movements noted. mood is reported as better, affect flat. speech and thought process were goal directed. denies current hallucinatios. denies paranoia. is alert and oriented x 4. denies current suicidal or homicidal ideations. insight and judgement are improving. ASSESSMENT AND PLAN: Continue current treatment. Monitor for symptoms.
[2018-07-26] MEDS: ALBUTEROL INHALER 60 PUFF/8 GM INHALER INHALATION PRN (17:43)
[2018-07-26] MEDS: HALOPERIDOL 1 MG TAB PO SCH (20:32)
[2018-07-26] MEDS: TOPIRAMATE 25 MG TAB PO SCH (20:33)
[2018-07-26] MEDS: NALTREXONE HCL 50 MG TAB PO SCH (20:33)
[2018-07-26] MEDS: traZODone HCL 50 MG TAB PO SCH (20:34)
[2018-07-27] MEDS: NICOTINE 14MG/24HR PATCH TRANSDERM SCH (08:09)
[2018-07-27] MEDS: LORATADINE 10 MG TAB PO SCH (08:09)
[2018-07-27] MEDS: CYANOCOBALAMIN 500 MCG TAB PO SCH (08:09)
[2018-07-27] MEDS: FLUoxetine HCL 10 MG CAP PO SCH (08:09)
[2018-07-27] MEDS: PANTOPRAZOLE 40 MG TABLET PO SCH (08:09)
[2018-07-27] MEDS: GABAPENTIN 300 MG CAP PO SCH ×3 (08:09→20:01)
[2018-07-27] MEDS: valACYclovir 500 MG TAB PO SCH (08:09)
[2018-07-27] MEDS: NAPROXEN 250 MG TAB PO PRN (08:34)
--- NOTE | 2018-07-27 11:14 | P.PN ---
Subjective Progress Note Date: 07/27/18 Principal diagnosis: Bipolar affective disorder: Alcohol use disorder severe: Polysubstance abuse Feeling anxious today and I blood pressures up. I'm also recovering from alcohol use. I called [facility] to see if I can get admitted there for polysubstance abuse in a residential treatment setting. Objective - Vital Signs Vital signs: Vital Signs Temp 98.3 F 07/27/18 06:23 Pulse 59 L 07/27/18 06:23 Resp 14 07/27/18 06:23 BP 105/59 07/27/18 06:23 Pulse Ox 95 07/22/18 13:29 Intake & Output 07/26/18 07/27/18 12 18:59 06:59 18:59 Weight 91.9 kg - Labs CBC & Chem 7: 07/23/18 09:46 07/23/18 09:46 Assessment and Plan (1) Major depressive disorder, recurrent Narrative/Plan: HPI: This is a 33-year-old female presents emergency Department chief complaint depression, suicidal ideation. Patient states that she is out of her medications she states she's been waiting for her primary care physician to prescribe them. Patient does not have a current psychiatrist. Patient states that she's having thoughts of overdosing. Patient denies any self-harm at this time. She does admit to marijuana and cocaine use. Patient denies any current chest pain, shortness breath, headache, dizziness, nausea vomiting. Patient denies any chance . Patient states that she does want help at this time. - Related Data Home Medications Medication Instructions Recorded Confirmed Loratadine [Claritin] 10 mg PO DAILY 02/17/17 07/22/18 valACYclovir [Valtrex] 500 mg PO DAILY 02/17/17 07/22/18 Albuterol Inhaler [Ventolin Hfa 2 puff INHALATION RT-Q4H PRN 07/22/18 07/22/18 Inhaler] Atomoxetine HCl [Strattera] 40 mg PO QAM 07/22/18 07/22/18 Cyanocobalamin (Vitamin B-12) 1,000 mcg PO DAILY 07/22/18 07/22/18 [Vitamin B-12] FLUoxetine HCL [PROzac] 20 mg PO DAILY 07/22/18 07/22/18 Gabapentin 600 mg PO TID 07/22/18 07/22/18 Naproxen 500 mg PO BID PRN 07/22/18 07/22/18 Omeprazole 20 mg PO DAILY 07/22/18 07/22/18 Triamcinolone 0.1% Cream [Kenalog 1 applicatio TOPICAL BID 07/22/18 07/22/18 0.1% Cream] traZODone HCL 50 mg PO HS 07/22/18 07/22/18 Allergies Allergy/AdvReac Type Severity Reaction Status Date / Time iodine AdvReac Verified 07/22/18 10:21 Past Medical History Past Medical History: Asthma Additional Past Medical History / Comment(s): Gallstones hypoglycemia History of Any Multi-Drug Resistant Organisms: None Reported Date of last positivie culture/infection: 10/14/16 MDRO Source:: Abdomen Past Surgical History: Section, Cholecystectomy, Tonsillectomy Additional Past Surgical History / Comment(s): x2 Past Anesthesia/Blood Transfusion Reactions: No Reported Reaction Past Psychological History: ADD/ADHD, Anxiety, Depression, Panic Disorder, PTSD Smoking Status: Current every day smoker Past Alcohol Use History: Occasional Past Drug Use History: Cocaine, Marijuana - Past Family History Father Family Medical History: Cancer Additional Family Medical History / Comment(s): Bladder cancer. Mother Additional Family Medical History / Comment(s): HX of Bipolar Musculoskeletal Examination - Abnormal/Involuntary Movements: [none] Strength: [greater than antigravity (greater than/equal to 3/5) in all extremities:] Muscle Tone: [no impairment] Gait: [grossly normal] Station: [grossly normal Mental Status Examination - General Appearance: [disheveled, casual, appears older than stated age Speech/Language: [spontaneous, rapid, rambled,expressive, loud] Attitude/Behavior: [cooperative,irritable Mood: [ depressed, anxious, elated, irritable, fearful, hopelessness] Affect: [lively, incongruent, labile, Orientation: [time, person, place situation] Thought Content: [wnl Risk Factors: [she is suicidal (ideations, plan), and/or Homicidal (ideations, plan), other] Perception: [wnl Thought Processes: [ concrete Concentration/Attention Span: [impaired] [Per observation and interview with the patient] Recent Memory: [impaired] [ 1 out of 3 in 3 minutes] Remote Memory: [wnl] [past events, as related history] Intelligence: [below average] [based on history, based on vocabulary, syntax, grammar, and content] Judgement: [ poor] [per patient's behavior/history of present illness] Insight: [ poor] [understanding severity of illness/history of present illness] Admitting Diagnosis: [bipolar affective [id number] ] Patient Strengths - Steady employment/financial stability: [] Housing stability: [x] Able to vocalize needs: [x] Motivation, determination, readiness for change: [x] Patient Limitations: [medication, non-compliance, pathological/unsupported environment, intellectual impairment, lack of social supports Initial Plan of Care: [admit voluntary, 15 minute checks, evaluation by medicine , psychiatric, nursing, social work and and increase today to invega 6 mg by mouth daily at bedtime and topamax 100 mg daily at bedtime, decrease gabapentin. ] Estimated Length of Stay: [friday disch] Initial Discharge Plan: [home, [facility], referred to therapist Prognosis: [ guarded] Justification for Inpatient Hospitalization - [Hallucinations, delusions, agitation, anxiety, depression resulting in significant loss of functioning.] [Dangerous to self, others, or property with need for controlled environment.] [Emotional or behavioral conditions and complications requiring 24 hour medical and nursing care.] [Need for special drug therapy, or other therapeutic program requiring continuous hospitalization.] [Failure of social or occupational functioning.] [Inability to meet basic life and health needs.] Current Visit: No Status: Acute Priority: Low Code(s): F33.9 - MAJOR DEPRESSIVE DISORDER, RECURRENT, UNSPECIFIED SNOMED Code(s): 81593368 (2) Cocaine use disorder, mild, abuse Current Visit: Yes Status: Resolved Priority: Low Code(s): F14.10 - COCAINE ABUSE, UNCOMPLICATED SNOMED Code(s): 73462969 Plan: Invega 6 mg by mouth daily at bedtime, Topamax 100 mg by mouth daily at bedtime for mood stabilizer, hemoglobin A1c due to her tired and fatigued illness to evaluate for diabetes, continue ReVia 50 mg by mouth daily at bedtime, trazodone 50 mg at bedtime, 10 mg Prozac by mouth every morning. She was changed to Invega since her insurance will pay for will titrated to an injectable 234 mg IM for 28 days Time with Patient: Less than 30
[2018-07-27] MEDS: NALTREXONE HCL 50 MG TAB PO SCH (20:01)
[2018-07-27] MEDS: PALIPERIDONE 6 MG TAB.ER.24 PO SCH (20:01)
[2018-07-27] MEDS: traZODone HCL 50 MG TAB PO SCH (20:01)
[2018-07-27] MEDS: TOPIRAMATE 100 MG TAB PO SCH (20:01)
[2018-07-27] MEDS ORDERED: PALIPERIDONE 3 MG TAB.ER.24 PO SCH (21:00)
[2018-07-28] MEDS: CYANOCOBALAMIN 500 MCG TAB PO SCH (08:26)
[2018-07-28] MEDS: NICOTINE 14MG/24HR PATCH TRANSDERM SCH (08:26)
[2018-07-28] MEDS: GABAPENTIN 300 MG CAP PO SCH ×3 (08:26→21:15)
[2018-07-28] MEDS: LORATADINE 10 MG TAB PO SCH (08:26)
[2018-07-28] MEDS: FLUoxetine HCL 10 MG CAP PO SCH (08:26)
[2018-07-28] MEDS: valACYclovir 500 MG TAB PO SCH (08:27)
[2018-07-28] MEDS: PANTOPRAZOLE 40 MG TABLET PO SCH (08:49)
[2018-07-28] MEDS: ALBUTEROL INHALER 60 PUFF/8 GM INHALER INHALATION PRN ×2 (10:32→21:48)
--- NOTE | 2018-07-28 12:26 | P.PN ---
Subjective Progress Note Date: 07/28/18 Principal diagnosis: Bipolar affective disorder: Alcohol use disorder severe: Polysubstance abuse Feeling anxious today and I blood pressures up. I'm also recovering from alcohol use. I [facility] to see if I can get admitted there for polysubstance abuse in a residential treatment setting. Objective - Vital Signs Vital signs: Vital Signs Temp 98.3 F 07/28/18 06:37 Pulse 64 07/28/18 06:37 Resp 16 07/28/18 06:37 BP 110/57 07/28/18 06:37 Pulse Ox 95 07/22/18 13:29 - Labs CBC & Chem 7: 07/23/18 09:46 07/23/18 09:46 Assessment and Plan (1) Major depressive disorder, recurrent Narrative/Plan: HPI: This is a 33-year-old female presents emergency Department chief complaint depression, suicidal ideation. Patient states that she is out of her medications she states she's been waiting for her primary care physician to prescribe them. Patient does not have a current psychiatrist. Patient states that she's having thoughts of overdosing. Patient denies any self-harm at this time. She does admit to marijuana and cocaine use. Patient denies any current chest pain, shortness breath, headache, dizziness, nausea vomiting. Patient denies any chance . Patient states that she does want help at this time. - Related Data Home Medications Medication Instructions Recorded Confirmed Loratadine [Claritin] 10 mg PO DAILY 02/17/17 07/22/18 valACYclovir [Valtrex] 500 mg PO DAILY 02/17/17 07/22/18 Albuterol Inhaler [Ventolin Hfa 2 puff INHALATION RT-Q4H PRN 07/22/18 07/22/18 Inhaler] Atomoxetine HCl [Strattera] 40 mg PO QAM 07/22/18 07/22/18 Cyanocobalamin (Vitamin B-12) 1,000 mcg PO DAILY 07/22/18 07/22/18 [Vitamin B-12] FLUoxetine HCL [PROzac] 20 mg PO DAILY 07/22/18 07/22/18 Gabapentin 600 mg PO TID 07/22/18 07/22/18 Naproxen 500 mg PO BID PRN 07/22/18 07/22/18 Omeprazole 20 mg PO DAILY 07/22/18 07/22/18 Triamcinolone 0.1% Cream [Kenalog 1 applicatio TOPICAL BID 07/22/18 07/22/18 0.1% Cream] traZODone HCL 50 mg PO HS 07/22/18 07/22/18 Allergies Allergy/AdvReac Type Severity Reaction Status Date / Time iodine AdvReac Verified 07/22/18 10:21 Past Medical History Past Medical History: Asthma Additional Past Medical History / Comment(s): Gallstones hypoglycemia History of Any Multi-Drug Resistant Organisms: None Reported Date of last positivie culture/infection: 10/14/16 MDRO Source:: Abdomen Past Surgical History: Section, Cholecystectomy, Tonsillectomy Additional Past Surgical History / Comment(s): x2 Past Anesthesia/Blood Transfusion Reactions: No Reported Reaction Past Psychological History: ADD/ADHD, Anxiety, Depression, Panic Disorder, PTSD Smoking Status: Current every day smoker Past Alcohol Use History: Occasional Past Drug Use History: Cocaine, Marijuana - Past Family History Father Family Medical History: Cancer Additional Family Medical History / Comment(s): Bladder cancer. Mother Additional Family Medical History / Comment(s): HX of Bipolar Musculoskeletal Examination - Abnormal/Involuntary Movements: [none] Strength: [greater than antigravity (greater than/equal to 3/5) in all extremities:] Muscle Tone: [no impairment] Gait: [grossly normal] Station: [grossly normal Mental Status Examination - General Appearance: [disheveled, casual, appears older than stated age Speech/Language: [spontaneous, rapid, rambled,expressive, loud] Attitude/Behavior: [cooperative,irritable Mood: [ depressed, anxious, elated, irritable, fearful, hopelessness] Affect: [lively, incongruent, labile, Orientation: [time, person, place situation] Thought Content: [wnl Risk Factors: [she is suicidal (ideations, plan), and/or Homicidal (ideations, plan), other] Perception: [wnl Thought Processes: [ concrete Concentration/Attention Span: [impaired] [Per observation and interview with the patient] Recent Memory: [impaired] [ 1 out of 3 in 3 minutes] Remote Memory: [wnl] [past events, as related history] Intelligence: [below average] [based on history, based on vocabulary, syntax, grammar, and content] Judgement: [ poor] [per patient's behavior/history of present illness] Insight: [ poor] [understanding severity of illness/history of present illness] Admitting Diagnosis: [bipolar affective [id number] ] Patient Strengths - Steady employment/financial stability: [] Housing stability: [x] Able to vocalize needs: [x] Motivation, determination, readiness for change: [x] Patient Limitations: [medication, non-compliance, pathological/unsupported environment, intellectual impairment, lack of social supports Initial Plan of Care: [admit voluntary, 15 minute checks, evaluation by medicine , psychiatric, nursing, social work and and increase today to invega 6 mg by mouth daily at bedtime and topamax 100 mg daily at bedtime, decrease gabapentin. ] Estimated Length of Stay: [friday disch] Initial Discharge Plan: [home, [facility], referred to therapist Prognosis: [ guarded] Justification for Inpatient Hospitalization - [Hallucinations, delusions, agitation, anxiety, depression resulting in significant loss of functioning.] [Dangerous to self, others, or property with need for controlled environment.] [Emotional or behavioral conditions and complications requiring 24 hour medical and nursing care.] [Need for special drug therapy, or other therapeutic program requiring continuous hospitalization.] [Failure of social or occupational functioning.] [Inability to meet basic life and health needs.] Current Visit: No Status: Acute Priority: Low Code(s): F33.9 - MAJOR DEPRESSIVE DISORDER, RECURRENT, UNSPECIFIED SNOMED Code(s): 51169151 (2) Cocaine use disorder, mild, abuse Current Visit: Yes Status: Resolved Priority: Low Code(s): F14.10 - COCAINE ABUSE, UNCOMPLICATED SNOMED Code(s): 46689019 Plan: Invega 6 mg by mouth daily at bedtime, Topamax 100 mg by mouth daily at bedtime for mood stabilizer, hemoglobin A1c due to her tired and fatigued illness to evaluate for diabetes, continue ReVia 50 mg by mouth daily at bedtime, trazodone 50 mg at bedtime, 10 mg Prozac by mouth every morning.Order topamax blood level She was changed to Invega since her insurance will pay for will titrated to an injectable 234 mg IM for 28 days Time with Patient: Less than 30
[2018-07-28 20:48] LABS: Hemoglobin A1C 5.1 % (4.0-6.0)
[2018-07-28] MEDS: NALTREXONE HCL 50 MG TAB PO SCH (21:15)
[2018-07-28] MEDS: TOPIRAMATE 100 MG TAB PO SCH (21:15)
[2018-07-28] MEDS: PALIPERIDONE 6 MG TAB.ER.24 PO SCH (21:15)
[2018-07-28] MEDS: traZODone HCL 50 MG TAB PO SCH (22:26)
[2018-07-28] MEDS: LORazepam 1 MG TAB PO PRN (22:42)
[2018-07-29 07:27] VITALS: BP 111/70; PULSE 103; RESP 18; TEMP 98
[2018-07-29] MEDS: PANTOPRAZOLE 40 MG TABLET PO SCH (08:25)
[2018-07-29] MEDS: NICOTINE 14MG/24HR PATCH TRANSDERM SCH (08:25)
[2018-07-29] MEDS: FLUoxetine HCL 10 MG CAP PO SCH (08:26)
[2018-07-29] MEDS: GABAPENTIN 300 MG CAP PO SCH (08:26)
[2018-07-29] MEDS: LORATADINE 10 MG TAB PO SCH (08:26)
[2018-07-29] MEDS: valACYclovir 500 MG TAB PO SCH (08:26)
[2018-07-29] MEDS: ALBUTEROL INHALER 60 PUFF/8 GM INHALER INHALATION PRN (08:31)
[2018-07-29] MEDS: CYANOCOBALAMIN 500 MCG TAB PO SCH (11:24)
--- NOTE | 2018-07-29 11:44 | P.DS ---
Providers Date of admission: 07/22/18 13:26 Expected date of discharge: 07/29/18 Attending physician: Nilesh James DO Consults: 07/22/18 13:31 Consult Physician Routine Consulting Provider: Naveed Vargas Consult Reason/Comments: H&P, with medical follow up Do you want consulting provider notified?: Yes Primary care physician: Veronica Montenegro - Discharge Diagnosis(es) (1) Major depressive disorder, recurrent HPI: This is a 33-year-old female presents emergency Department chief complaint depression, suicidal ideation. Patient states that she is out of her medications she states she's been waiting for her primary care physician to prescribe them. Patient does not have a current psychiatrist. Patient states that she's having thoughts of overdosing. Patient denies any self-harm at this time. She does admit to marijuana and cocaine use. Patient denies any current chest pain, shortness breath, headache, dizziness, nausea vomiting. Patient denies any chance . Patient states that she does want help at this time. - Related Data Home Medications Medication Instructions Recorded Confirmed Loratadine [Claritin] 10 mg PO DAILY 02/17/17 07/22/18 valACYclovir [Valtrex] 500 mg PO DAILY 02/17/17 07/22/18 Albuterol Inhaler [Ventolin Hfa 2 puff INHALATION RT-Q4H PRN 07/22/18 07/22/18 Inhaler] Atomoxetine HCl [Strattera] 40 mg PO QAM 07/22/18 07/22/18 Cyanocobalamin (Vitamin B-12) 1,000 mcg PO DAILY 07/22/18 07/22/18 [Vitamin B-12] FLUoxetine HCL [PROzac] 20 mg PO DAILY 07/22/18 07/22/18 Gabapentin 600 mg PO TID 07/22/18 07/22/18 Naproxen 500 mg PO BID PRN 07/22/18 07/22/18 Omeprazole 20 mg PO DAILY 07/22/18 07/22/18 Triamcinolone 0.1% Cream [Kenalog 1 applicatio TOPICAL BID 07/22/18 07/22/18 0.1% Cream] traZODone HCL 50 mg PO HS 07/22/18 07/22/18 Allergies Allergy/AdvReac Type Severity Reaction Status Date / Time iodine AdvReac Verified 07/22/18 10:21 Past Medical History Past Medical History: Asthma Additional Past Medical History / Comment(s): Gallstones hypoglycemia History of Any Multi-Drug Resistant Organisms: None Reported Date of last positivie culture/infection: 10/14/16 MDRO Source:: Abdomen Past Surgical History: Section, Cholecystectomy, Tonsillectomy Additional Past Surgical History / Comment(s): x2 Past Anesthesia/Blood Transfusion Reactions: No Reported Reaction Past Psychological History: ADD/ADHD, Anxiety, Depression, Panic Disorder, PTSD Smoking Status: Current every day smoker Past Alcohol Use History: Occasional Past Drug Use History: Cocaine, Marijuana - Past Family History Father Family Medical History: Cancer Additional Family Medical History / Comment(s): Bladder cancer. Mother Additional Family Medical History / Comment(s): HX of Bipolar Current Visit: No Status: Acute Priority: Low (2) Cocaine use disorder, mild, abuse Current Visit: Yes Status: Resolved Priority: Low Hospital Course: Jodi was admitted on a formal voluntary to the psychiatric unit and was titrated on medications but did not want to continue with treatment and signed out AMA. Recommended that she go to minimal mental health follow-up and copy of the treatment plan will be sent to [facility] as well. Plan: She filed a 72 hour intent to leave voluntary and I recommend that she be discharged AMA since she is unwilling to do treatment. She wants to just take the current medications are listed below. There is no criteria to hold her S petition for first use second clinical CERT for involuntary admission. Invega 6 mg by mouth daily at bedtime, Topamax 100 mg by mouth daily at bedtime for mood stabilizer, hemoglobin A1c due to her tired and fatigued illness to evaluate for diabetes, continue ReVia 50 mg by mouth daily at bedtime, trazodone 50 mg at bedtime, 10 mg Prozac by mouth every morning.Order topamax blood level Patient Condition at Discharge: Fair Plan - Discharge Summary Discharge Rx Participant: No New Discharge Prescriptions: New Acetaminophen Tab [Tylenol] 650 mg PO Q4HR PRN tab PRN Reason: Pain/Discomfort Calamine/Zinc Oxide Lotion [Calamine Lotion] 1 applic TOPICAL TID PRN applic PRN Reason: Skin Irritation Cyclobenzaprine [Flexeril] 10 mg PO BID PRN tab PRN Reason: Muscle Spasm FLUoxetine HCL [PROzac] 10 mg PO DAILY cap Gabapentin [Neurontin] 300 mg PO TID cap LORazepam [Ativan] 1 mg PO TID PRN tab PRN Reason: Anxiety, Agitation Mag Hydrox/Al Hydrox/Simeth [Maalox] 30 ml PO Q4HR PRN cup PRN Reason: Gi Upset Magnesium Hydroxide [Milk of Magnesia Concentrate] 2,400 mg PO DAILY PRN ml PRN Reason: Constipation Naltrexone HCl [Revia] 50 mg PO 2100 tab Nicotine 14Mg/24Hr Patch [Habitrol] 1 patch TRANSDERM DAILY patch Paliperidone [Invega] 6 mg PO 2100 tab.er.24 Topiramate [Topamax] 100 mg PO 2100 tab valACYclovir [Valtrex] 500 mg PO DAILY tab Continue valACYclovir [Valtrex] 500 mg PO DAILY Loratadine [Claritin] 10 mg PO DAILY FLUoxetine HCL [PROzac] 20 mg PO DAILY Triamcinolone 0.1% Cream [Kenalog 0.1% Cream] 1 applicatio TOPICAL BID Omeprazole 20 mg PO DAILY Naproxen 500 mg PO BID PRN PRN Reason: Pain Gabapentin 600 mg PO TID traZODone HCL 50 mg PO HS Atomoxetine HCl [Strattera] 40 mg PO QAM Cyanocobalamin (Vitamin B-12) [Vitamin B-12] 1,000 mcg PO DAILY Albuterol Inhaler [Ventolin Hfa Inhaler] 2 puff INHALATION RT-Q4H PRN PRN Reason: Shortness Of Breath Or Wheezing Discharge Medication List Loratadine [Claritin] 10 mg PO DAILY 02/17/17 [History] valACYclovir [Valtrex] 500 mg PO DAILY 02/17/17 [History] Albuterol Inhaler [Ventolin Hfa Inhaler] 2 puff INHALATION RT-Q4H PRN 07/22/18 [ History] Atomoxetine HCl [Strattera] 40 mg PO QAM 07/22/18 [History] Cyanocobalamin (Vitamin B-12) [Vitamin B-12] 1,000 mcg PO DAILY 07/22/18 [ History] FLUoxetine HCL [PROzac] 20 mg PO DAILY 07/22/18 [History] Gabapentin 600 mg PO TID 07/22/18 [History] Naproxen 500 mg PO BID PRN 07/22/18 [History] Omeprazole 20 mg PO DAILY 07/22/18 [History] Triamcinolone 0.1% Cream [Kenalog 0.1% Cream] 1 applicatio TOPICAL BID 07/22/18 [History] traZODone HCL 50 mg PO HS 07/22/18 [History] Acetaminophen Tab [Tylenol] 650 mg PO Q4HR PRN tab 07/29/18 [Rx] Calamine/Zinc Oxide Lotion [Calamine Lotion] 1 applic TOPICAL TID PRN applic [Rx] Cyclobenzaprine [Flexeril] 10 mg PO BID PRN tab 07/29/18 [Rx] FLUoxetine HCL [PROzac] 10 mg PO DAILY cap 07/29/18 [Rx] Gabapentin [Neurontin] 300 mg PO TID cap 07/29/18 [Rx] LORazepam [Ativan] 1 mg PO TID PRN tab 07/29/18 [Rx] Mag Hydrox/Al Hydrox/Simeth [Maalox] 30 ml PO Q4HR PRN cup 07/29/18 [Rx] Magnesium Hydroxide [Milk of Magnesia Concentrate] 2,400 mg PO DAILY PRN ml 01/09 [Rx] Naltrexone HCl [Revia] 50 mg PO 2100 tab 07/29/18 [Rx] Nicotine 14Mg/24Hr Patch [Habitrol] 1 patch TRANSDERM DAILY patch 07/29/18 [Rx] Paliperidone [Invega] 6 mg PO 2100 tab.er.24 07/29/18 [Rx] Topiramate [Topamax] 100 mg PO 2100 tab 07/29/18 [Rx] valACYclovir [Valtrex] 500 mg PO DAILY tab 07/29/18 [Rx] Follow up Appointment(s)/Referral(s): Veronica Montenegro MD [Primary Care Provider] - 1-2 days Discharge Disposition: HOME SELF-CARE
== END 2018-07-29 13:16 | disposition left against medical advice (07) | DRG 885 ==
LOC: EC 08:41 → 3MHU 13:26
PROVIDERS: ADMIT Psychiatry & Neurology Psychiatry; ATTEND Psychiatry & Neurology Psychiatry
DX: F33.9 Major depressive disorder, recurrent, unspecified (principal); R45.851 Suicidal ideations; F10.10 Alcohol abuse, uncomplicated; F14.10 Cocaine abuse, uncomplicated; F17.210 Nicotine dependence, cigarettes, uncomplicated; F41.0 Panic disorder [episodic paroxysmal anxiety]; F43.10 Post-traumatic stress disorder, unspecified; F90.9 Attention-deficit hyperactivity disorder, unspecified type; J45.909 Unspecified asthma, uncomplicated; Z79.899 Other long term (current) drug therapy; Z80.52 Family history of malignant neoplasm of bladder; Z91.19 Patient's noncompliance with other medical treatment and regimen; Z81.8 Family history of other mental and behavioral disorders; Z88.8 Allergy status to other drugs, medicaments and biological substances
CPT/HCPCS: 80053; 80201; 80306; 81025; 83036; 85025; 86141; 94640; 99285